=== PATIENT | female | born 2000 | race Caucasian/White ===

== ENCOUNTER 2021-03-01 21:13 | Emergency (ER) | payer OTHER, SELFPAY ==
--- NOTE | ~2021-03-01 | XR_ITS ---
EXAMINATION: XR THORACIC SPINE CLINICAL INFORMATION: Back pain COMPARISON: None TECHNIQUE: 3 views of the thoracic spine were obtained. FINDINGS: Alignment throughout the thoracic spine appears anatomic. Vertebral body heights and intervertebral disc spaces are maintained. No acute fracture is seen. XR/XR thoracic spine 3V IMPRESSION: No acute findings identified.
--- NOTE | ~2021-03-01 | XR_ITS ---
EXAMINATION: XR LUMBOSACRAL SPINE CLINICAL INFORMATION: Back pain COMPARISON: None TECHNIQUE: Three views of the lumbosacral spine. FINDINGS: There is anatomic alignment of the lumbar vertebral bodies and posterior elements. Vertebral body heights and intervertebral disc spaces are maintained. No acute fracture is seen. Sacroiliac joints appear intact. XR/XR lumbar spine 2-3V IMPRESSION: No acute findings identified.
[2021-03-01 22:33] VITALS: BP 127/79; PULSE 76; RESP 16; TEMP 36.6; O2SAT 100; BMI 33.2
[2021-03-02] MEDS: oxyCODONE HCl Immed Release 5 MG TABLET PO (01:47)
--- NOTE | 2021-03-02 02:20 | ED_ITS ---
HPI - Back Pain/Injury General Chief Complaint: Back Pain/Injury Stated Complaint: back pain Time Seen by Provider: 03/02/21 00:35 History of Present Illness HPI Narrative: 20-year-old otherwise healthy female who presents to the emergency department with chronic back pain. Patient states ever since she was a teenager she has had chronic back pain extending from her upper to lower back. Denies any new or recent injury or trauma however states today at work while standing she had such severe low back pain she called her mom and had to leave and was in tears. Patient states she intermittently tried Motrin and Tylenol with this does not help. Denies any numbness or tingling in the arms and legs. Denies any neck pain. Denies any chest pain, shortness of breath, abdominal pain. Denies any numbness or tingling the genital region or weakness in lower extremities. Denies any issues with bowel or bladder habits. 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 Related Data Allergies Allergy/AdvReac Type Severity Reaction Status Date / Time No Known Allergies Allergy Verified 03/01/21 22:33 Review of Systems Review of Systems: Constitutional : No Weight loss, No Fever, No Chills, No Night Sweats, No Fatigue, No Malaise ENT/Mouth : No Hearing loss, No Ear Pain, No Nasal Congestion, No Sinus Pain, No Hoarseness, No sore throat, No Rhinorrhea, No Swallowing Difficulty Eyes: No Eye Pain, No Swelling, No Redness, No Foreign Body, No Discharge, No Vision Changes Cardiovascular : No Chest Pain, No SOB, No Dyspnea on Exertion, No Orthopnea, No Edema, No Palpitations Respiratory : No Cough, No Sputum, No Wheezing, No Smoke Exposure, No Dyspnea Gastrointestinal : No Nausea, No Vomiting, No Diarrhea, No Constipation, No abdominal Pain, No Hematochezia, No Melena Genitourinary : no irregular bleeding, No Dysuria, No Urinary Frequency, No Hematuria, No Urinary Incontinence, No Urgency, No Flank Pain, No Urinary Flow Changes, No Hesitancy Musculoskeletal : + back pain No Joint Swelling Skin : No Skin Lesions, No rash Neuro : No Weakness, No Numbness, No Paresthesias, No Loss of Consciousness, No Dizziness, No Headache Psych : No Anxiety/Panic, No Depression, No SI/HI/AH/VH, No Social Issues, Heme/Lymph: No Bruising, No Bleeding,No Lymphadenopathy Endocrine : No Polyuria, No Polydipsia, No Temperature Intolerance [facility] Past Medical History Attestation statement: The following information was validated with the patient. Source: old records reviewed and nursing notes reviewed Medical History (Updated 03/02/21 @ 02:33 by LÁZARO Mitchell) Asthma Back pain Social History Social History Advance Directives: No Advance Directives Information Provided: No Physical Exam Vital Signs: Vital Signs: Last Vital Signs Temp 98 F 03/01/21 22:33 Pulse 76 03/01/21 22:33 Resp 16 03/01/21 22:33 BP 127/79 03/01/21 22:33 Pulse Ox 100 03/01/21 22:33 Body Mass Index 33.2 vital signs have been reviewed as normal and appeared to be correct. Blood pressure normal. Heart rate normal. Respiration rate normal. Temperature normal. Oxygen saturation normal. Appearance: Alert. Oriented X3. No acute distress. Head: Normal external exam. Normocephalic. Atraumatic. No Martinez signs noted. No raccoon eyes noted Eyes:Conjunctiva and sclera normal. Eyelids normal. ENT: Moist mucous membranes. No trismus noted. No drooling noted. No muffled voice noted. Neck: Normal inspection. Neck supple. FROM. . No meningeal signs. No neck mass noted. CVS: Pulses normal throughout. Respiratory: No respiratory distress. Painless inspiration. Chest nontender. Abdomen: Soft and nontender. No distention noted. No organomegaly noted. No visible injury noted. Back: No CVA tenderness. Full range of motion noted. Tenderness to palpation to the midline spine from the upper thoracic region to the lower lumbar region. No C-spine tenderness. No acute step-offs or gross deformities. No overlying erythema ecchymosis or edema. Skin: Skin warm and dry. Normal skin color. Normal skin turgor. No rashes/lesions/lacerations noted. Extremities: No lower extremity edema. Extremities exhibit normal range of motion. Extremities nontender. Neuro: Oriented X 3. No motor deficit. No sensory deficit. Reflexes normal. Course Reevaluation(s) Reevaluation #1: Patient's x-rays returning without evidence of fracture dislocation feel that discharge is stable, will discharge home at this time. MDM - Back Pain/Injury MDM Narrative Medical decision making narrative: Patient's vital signs are stable and she is afebrile. Patient presenting to the ED for chronic back pain on the upper back to lower back. Patient without any gross neurologic deficits no signs of injury or trauma. Patient herself denies any recent injury or trauma. Unclear cause of patient's symptoms lower suspicion for acute emergent injury however will obtain plain films of the thoracic and lumbar spine given recent day care provider to ensure the absence of compression fractures. Will medicate with single dose of oxycodone have expressed I will not write prescription for this at home. Have expressed the importance of outpatient physical therapy/specialist evaluation which I am happy to provide. Will continue to monitor and reassess pending the above. Discharge Plan Discharge Clinical Impression: Thoracic back pain, Acute lumbar back pain Patient Disposition: Home, Self-Care Instructions: Back Pain (ED) Additional Instructions: Your seen in the emergency department today for ongoing back pain. X-rays were taking without evidence of acute fracture or dislocation you will be referred to a specialist for additional management her pain. Use Motrin and Tylenol at home for pain control Referrals: Alejandro Mancini MD [Physician] - 1 week Stand Alone Forms: Work/School Release Print Language: [place]
== END 2021-03-02 02:51 | disposition home or self-care (01) ==
PROVIDERS: Emergency Provider Emergency Medicine; PCP Specialist
DX: M54.5 Low back pain (principal); M54.6 Pain in thoracic spine
CPT/HCPCS: 72072; 72100; 99283

== ENCOUNTER 2023-05-04 10:47 | Outpatient (REF) | payer BC, SELFPAY ==
[2023-05-04 11:07] LABS: MANUAL DIFF FLAG NO
[2023-05-04 11:53] LABS: Basophils Percent Auto 0.3 % (0-2); Eosinophils Absolute Auto 0.3 X10*3/uL (0.0-0.4); Eosinophils Percent Auto 3.6 % (0-4); Hemoglobin 12.9 g/dl (12.0-16.0); Imm Gran Abs Auto 0.02 X10*3/uL (0.00-0.03); Imm Gran Pct Auto 0.2 % (0.0-0.4); Lymphocytes Absolute Auto 2.6 X10*3/uL (1.2-4.9); Lymphocytes Percent Auto 29.7 % (20-40); Mean Corpuscular HGB Conc 30.7 g/dl (31.0-35.0); Mean Corpuscular Hemoglobin 25.3 pg (27.0-33.0); Mean Corpuscular Volume 82.4 fL (80.0-98.0); Mean Platelet Volume 9.1 fL (9.4-12.3); Monocytes Absolute Auto 0.3 X10*3/uL (0.1-1.2); Monocytes Percent Auto 3.6 % (2-11); Neutrophils Absolute Auto 5.5 x10*3/uL (2.0-8.3); Neutrophils Percent Auto 62.6 % (45-73); Platelet Count 457 X10*3/uL (160-400); White Blood Count 8.9 X10*3/uL (4.8-10.8)
[2023-05-04 12:38] LABS: Alanine Aminotransferase 11 U/L (0-31); Albumin Level 3.8 g/dL (3.5-5.0); Alkaline Phosphatase 83 U/L (39-117); Anion Gap 10 (12-20); Aspartate Amino Transferase 13 U/L (5-31); Bilirubin Direct < 0.2 mg/dL (0.0-0.5); Bilirubin Total 0.2 mg/dL (0.0-1.0); Blood Urea Nitrogen 11 mg/dL (9-16); Calcium 9.6 mg/dL (8.4-10.2); Carbon Dioxide 26 mmol/L (22-29); Chloride 108 mmol/L (96-108); Cholesterol 197 mg/dL; Estimated Glomerular Filt Rate > 60; Glucose Random 101 mg/dL (60-115); HDL Cholesterol 41 mg/dL; LDL Cholesterol Calculated 131 mg/dl; Potassium 4.2 mmol/L (3.3-5.1); Sodium 140 mmol/L (135-145); Total Protein 7.8 g/dL (6.5-8.0); Triglycerides 129 mg/dL
[2023-05-05 06:02] LABS: HBS Num1 66.83 mIU/mL (0-7.99); HBc Num1 0.11 S/CO (0.00-0.79); HBsAGNum1 0.37 S/CO (0.00-0.99); Hepatitis B Core Antibody Nonreactive (Nonreactive); Hepatitis B Surface Antigen Negative (Negative); ~HepC Num1 0.68 S/CO (0.00-0.79); ~Hepatitis B Surface Antibody REACTIVE (Nonreactive); ~Hepatitis C Antibody Nonreactive (Nonreactive)
[2023-05-06 22:53] LABS: TS Negative Control Passed; TS Panel A 0; TS Panel B 0; TS Positive Control Passed; TSpotTB Negative (Negative)
== END 2023-05-04 10:48 | disposition home or self-care (01) ==
LOC: HO.LAB 10:47
PROVIDERS: PCP Internal Medicine; Visit Provider Physician Assistant Medical
DX: L20.89 Other atopic dermatitis (principal)
CPT/HCPCS: 36415; 80048; 80061; 80076; 85025; 86481; 86704; 86706; 86803; 87340

== ENCOUNTER 2023-10-21 14:59 | Outpatient (AMB) | payer BC, SELFPAY ==
--- NOTE | 2023-10-21 15:03 | MHC.OFFWIV ---
Intake Vital Signs 10/21/23 15:05 Height 5 ft Weight 185 lb 4 oz BMI 36.2 BP 124/76 Blood Pressure Location Rt brachial Position Sitting Pulse 71 Pulse Source Pulse Oximeter Temp 97.4 F Temp Source Temporal Artery Scan Pulse Oximetry (%) 99 Oxygen Delivery Method Room Air Intake Visit Reasons: EST/ear pain bilateral(lobby) Intake Note: Pt is here c/o bilateral ear discomfort for three weeks. Patient Tobacco Use Status: Never used Tobacco Allergies No Known Allergies Allergy (Verified 10/21/23 15:05) Do you need a note to return to daycare/school/sports/work: No HPI HPI Comments History of Present Illness Details Patient is a 22yo F who presents to office with R ear pain She said ongoing x 3 weeks Started intermittent and has become constant Rates it a 03/21 No discharge, drainage, loss of hearing No fever or chills Minimal ST resolved No congestion or cough Using OTC medicine without comolete relief Denies trauma [facility] Medical History (Updated 10/21/23 @ 15:23 by Anny Matt PA-C) Back pain Asthma Surgical History No pertinent past surgical history Family History Mother Thyroid disease Father No problems noted. Social History Housing: House Alcohol intake: current Alcohol intake frequency: holidays/special occasions only Alcohol type: other Patient Tobacco Use Status: Never used Tobacco e-Cigarette/Vaping Use: Never Used Second Hand Smoke Exposure: No service: No Current occupational status: employed Current occupational exposures/hazards: No Cognitive needs: No Hearing needs: No Vision needs: Yes Review of Systems Const Denies body aches, Denies chills, Denies fatigue, Denies fever(s) and Denies headache(s) Eyes Denies blurry vision ENT Reports otalgia, Denies headache(s), Denies nasal discharge and Denies sore throat (none currently) Card Denies chest pain Resp Denies cough Musc Denies myalgias Skin/Breast Denies erythema and Denies rash Neuro Denies headache(s) Endo Denies fatigue Physical Exam Vital Signs: Last Vital Signs Temp 97.4 F 10/21/23 15:05 Pulse 71 10/21/23 15:05 BP 124/76 10/21/23 15:05 Pulse Ox 99 10/21/23 15:05 Oxygen Delivery Method Room Air 10/21/23 15:05 BMI result Body Mass Index 36.2 General: Non-toxic, NAD. Speaking full sentences. Skin: Warm dry throughout Eye: EOMI HENT: Airway patent. Uvula midline. No pharyngeal erythema or edema. 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 Bilateral canals clear. R TM has slight clear fluid behind membrane. Both TM non-erythematous, non-bulging. No TM perforation or hemotympanum noted. Respiratory: No respiratory distress Neurology: A/O. No aphasia or facial droop. Gait without abnormality Psych: Good mood and affect Assessment & Plan Assessment & Plan (1) Otalgia of right ear: Code(s): H92.01 - Otalgia, right ear Plan: Patient seen and evaluated. No OM or OE noted on exam Small amount of fluid behind R TM without infection Will trial nasal steroid andtylenol prn F/U with PCP Patient gave verbal understanding and had no additional questions or concerns at time of discharge All questions answered Medications: New ipratropium bromide administer into each nostril 2 sprays intranasal BID-TID PRN 30 mL 0RF allergy symptoms Coding Level of Care Code Est Pt Level 3 (73514) Diagnoses Otalgia of right ear H92.01
[2023-10-21 15:05] VITALS: BP 124/76; PULSE 71; TEMP 36.3; O2SAT 99; BMI 36.2
== END 2023-10-21 15:35 | disposition home or self-care (01) ==
PROVIDERS: PCP Internal Medicine; Visit Provider Physician Assistant
DX: H92.01 Otalgia, right ear (principal)
CPT/HCPCS: 99213

== ENCOUNTER 2023-12-05 09:04 | Outpatient (REF) | payer BC, SELFPAY ==
[2023-12-05 09:16] LABS: MANUAL DIFF FLAG NO
[2023-12-05 09:40] LABS: Basophils Percent Auto 0.2 % (0-2); Eosinophils Absolute Auto 0.1 X10*3/uL (0.0-0.4); Eosinophils Percent Auto 1.5 % (0-4); Hematocrit 38.2 % (37.0-47.0); Hemoglobin 12.3 g/dl (12.0-16.0); Imm Gran Abs Auto 0.03 X10*3/uL (0.00-0.03); Imm Gran Pct Auto 0.3 % (0.0-0.4); Lymphocytes Absolute Auto 3.3 X10*3/uL (1.2-4.9); Lymphocytes Percent Auto 38.6 % (20-40); Mean Corpuscular HGB Conc 32.2 g/dl (31.0-35.0); Mean Corpuscular Hemoglobin 27.5 pg (27.0-33.0); Mean Corpuscular Volume 85.5 fL (80.0-98.0); Mean Platelet Volume 9.1 fL (9.4-12.3); Monocytes Absolute Auto 0.5 X10*3/uL (0.1-1.2); Monocytes Percent Auto 5.6 % (2-11); Neutrophils Absolute Auto 4.6 x10*3/uL (2.0-8.3); Neutrophils Percent Auto 53.8 % (45-73); Platelet Count 517 X10*3/uL (160-400); Red Blood Count 4.47 X10*6/uL (4.20-5.50); Red Cell Distribution Width 13.1 % (11.0-16.0); White Blood Count 8.6 X10*3/uL (4.8-10.8)
[2023-12-05 10:14] LABS: Alanine Aminotransferase 8 U/L (0-31); Albumin Level 3.6 g/dL (3.5-5.0); Alkaline Phosphatase 70 U/L (39-117); Anion Gap 10 (12-20); Aspartate Amino Transferase 14 U/L (5-31); Bilirubin Total 0.3 mg/dL (0.0-1.0); Blood Urea Nitrogen 15 mg/dL (9-16); Calcium 9.1 mg/dL (8.4-10.2); Carbon Dioxide 21 mmol/L (22-29); Chloride 111 mmol/L (96-108); Cholesterol 220 mg/dL (<200); Estimated Glomerular Filt Rate > 60; Glucose Random 71 mg/dL (60-115); HDL Cholesterol 54 mg/dL (>40); LDL Cholesterol Calculated 150 mg/dL (<100); Potassium 3.9 mmol/L (3.3-5.1); Sodium 138 mmol/L (135-145); Total Protein 7.2 g/dL (6.5-8.0); Triglycerides 83 mg/dL (<150)
== END 2023-12-05 09:05 | disposition home or self-care (01) ==
LOC: HO.LAB 09:04
PROVIDERS: PCP Internal Medicine; Visit Provider Physician Assistant Medical
DX: Z13.6 Encounter for screening for cardiovascular disorders (principal); L20.89 Other atopic dermatitis
CPT/HCPCS: 36415; 80053; 80061; 85025

== ENCOUNTER 2023-12-26 09:22 | Outpatient (REF) | payer BC, SELFPAY ==
[2023-12-26 09:37] LABS: MANUAL DIFF FLAG NO
[2023-12-26 10:21] LABS: Basophils Percent Auto 0.2 % (0-2); Eosinophils Absolute Auto 0.3 X10*3/uL (0.0-0.4); Eosinophils Percent Auto 2.9 % (0-4); Hematocrit 38.6 % (37.0-47.0); Hemoglobin 12.2 g/dl (12.0-16.0); Imm Gran Abs Auto 0.04 X10*3/uL (0.00-0.03); Imm Gran Pct Auto 0.5 % (0.0-0.4); Lymphocytes Absolute Auto 2.8 X10*3/uL (1.2-4.9); Lymphocytes Percent Auto 32.4 % (20-40); Mean Corpuscular HGB Conc 31.6 g/dl (31.0-35.0); Mean Corpuscular Hemoglobin 26.8 pg (27.0-33.0); Mean Corpuscular Volume 84.6 fL (80.0-98.0); Mean Platelet Volume 8.9 fL (9.4-12.3); Monocytes Absolute Auto 0.6 X10*3/uL (0.1-1.2); Monocytes Percent Auto 6.5 % (2-11); Neutrophils Percent Auto 57.5 % (45-73); Platelet Count 396 X10*3/uL (160-400); Red Blood Count 4.56 X10*6/uL (4.20-5.50); Red Cell Distribution Width 12.6 % (11.0-16.0); White Blood Count 8.7 X10*3/uL (4.8-10.8)
[2023-12-26 11:03] LABS: Alanine Aminotransferase 9 U/L (0-31); Albumin Level 3.6 g/dL (3.5-5.0); Alkaline Phosphatase 72 U/L (39-117); Anion Gap 10 (12-20); Aspartate Amino Transferase 15 U/L (5-31); Bilirubin Total 0.2 mg/dL (0.0-1.0); Blood Urea Nitrogen 11 mg/dL (9-16); Calcium 9.4 mg/dL (8.4-10.2); Carbon Dioxide 23 mmol/L (22-29); Chloride 112 mmol/L (96-108); Cholesterol 201 mg/dL (<200); Estimated Glomerular Filt Rate > 60; Glucose Fasting 71 mg/dL (60-99); HDL Cholesterol 49 mg/dL (>40); LDL Cholesterol Calculated 135 mg/dL (<100); Potassium 4.1 mmol/L (3.3-5.1); Sodium 141 mmol/L (135-145); Total Protein 7.4 g/dL (6.5-8.0); Triglycerides 85 mg/dL (<150)
[2023-12-26 11:19] LABS: Thyroid Stimulating Hormone 1.26 uIU/mL (0.32-4.0)
== END 2023-12-26 09:23 | disposition home or self-care (01) ==
LOC: HO.LAB 09:22
PROVIDERS: PCP Internal Medicine; Visit Provider Internal Medicine
DX: E66.9 Obesity, unspecified (principal)
CPT/HCPCS: 36415; 80053; 80061; 84443; 85025

== ENCOUNTER 2024-06-06 17:24 | Outpatient (AMB) | payer BC, SELFPAY ==
--- NOTE | 2024-06-06 17:26 | MHC.PC.OV ---
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 Accompanied by: Self / Same As Patient Allergies No Known Allergies Allergy (Verified 06/06/24 17:41) Medication List - Last Reconciled 06/06/24 by Marsha Yeung MD desogestrel-ethinyl estradiol 0.15-0.03 mg (Apri) 1 tab PO DAILY Tobacco use date assessed: 06/06/24 Dental Screening Dental Screen Date: 06/06/24 Did you have a dental visit in the last 12 months?: Yes Did you have a dental problem in the last 6 months where you did not have access to dental care?: No Was dental information given to patient?: Patient has dentist HPI HPI Comments History of Present Illness Details This is a 23-year-old female that comes for her physical exam. Pap smear done 2023 was normal as per patient. Complains of some hair loss and will see Dermatology next year. She is obese with a BMI of 35.9 and has tried diet and exercise with no significant improvement. I will start her on Wegovy if insurance approves. [facility] Medical History Back pain Asthma Surgical History No pertinent past surgical history Family History Mother Thyroid disease Father No problems noted. Social History Housing: House Alcohol intake: current Alcohol intake frequency: holidays/special occasions only Alcohol type: other Patient Tobacco Use Status: Never used Tobacco e-Cigarette/Vaping Use: Never Used Second Hand Smoke Exposure: No service: No Current occupational status: employed Current occupational exposures/hazards: No Cognitive needs: No Hearing needs: No Vision needs: Yes Questionnaire PHQ-9 Over the last 2 weeks, how often have you been bothered by any of the following problems? 1. Little interest or pleasure in doing things: not at all 2. Feeling down, depressed, or hopeless: not at all 3. Trouble falling or staying asleep, or sleeping too much: not at all 4. Feeling tired or having little energy: not at all 5. Poor appetite or overeating: not at all 6. Feeling bad about yourself - or that you are a failure or have let yourself or your family down: not at all 7. Trouble concentrating on things, such as reading the newspaper or watching television: not at all 8. Moving or speaking so slowly that other people could have noticed. Or the opposite - being so fidgety or restless that you have been moving around a lot more than usual: not at all 9. Thoughts that you would be better off or of hurting yourself in some way: not at all Total score: 0 Depression Screening Interpretation: Negative Depression Screening Done: Yes 30113 - PHQ-9 Billing: Yes Source: Developed by Drs. Enoch Blanco, Lidia Lorenzo, Kash Jimenez and colleagues, with an educational aashish from [employer]. Thrive Questionnaire Date Thrive assessed: 06/06/24 I am a: Patient What is your living situation today?: I have a steady place to live Within the past 12 months, did the food you bought not last and you didn't have the money to get more?: Never true Within the past 12 months, did you worry whether your food would run out before you got money to buy more?: Never true Do you have trouble paying for medicines?: No Do you have trouble getting transportation to medical appointments?: No Do you have trouble paying your heating and electricity bill?: No Do you have trouble taking care of your child, family member or friend?: No Do you have trouble with day-to-day activities such as bathing, preparing meals, shopping, managing finances, etc.?: No Are you currently unemployed and looking for a job?: No Are you interested in more education?: No Please select the resources that you would like help with: None Currently or been in a relationship where the following occur: No concerns reported THRIVE Score: 0 AUDIT C Alcohol Use Questionnaire (AUDIT-C) 1. How often do you have a drink containing alcohol?: Never Total Score: 0 Score Reviewed/Action Taken: No WANG-7 AMB Questionnaire WANG-7 Date WANG - 7 assessed: 06/06/24 Feeling nervous, anxious, or on edge: 3 = Nearly every day Not being able to stop or control worryin = Not at all Worrying too much about different things: 1 = Several days Trouble relaxin = Not at all Being so restless that it is hard to sit still: 1 = Several days Becoming easily annoyed or irritable: 0 = Not at all Feeling afraid as if something awful might happen: 1 = Several days Total WANG-7 score (0-4 normal; 5-9 mild; 10-14 moderate; 15-21 severe): 6 Source: Developed by Drs. Enoch Blanco, Lidia Lorenzo, Kash Jimenez and colleagues, with an educational aashish from [employer]. WANG-7 Assessment Billing WANG-7 Assessment Tool: WANG-7 Assessment 59361 Review of Systems Const All systems reviewed & are unremarkable except as noted in HPI and below Card Denies chest pain at rest, Denies chest pain with activity, Denies edema, Denies irregular heart rhythm, Denies claudication, Denies dyspnea, Denies dyspnea on exertion, Denies orthopnea, Denies paroxysmal nocturnal dyspnea and Denies slow heart rate Resp Denies cough, Denies dyspnea and Denies dyspnea on exertion GI Denies abdominal pain, Denies change in bowel habits, Denies excessive flatus, Denies nausea and Denies vomiting Musc Denies atrophy, Denies deformity and Denies limited range of motion Physical exam (Primary Care) Vital Signs: Last Vital Signs BP 122/70 06/06/24 17:27 BMI result Body Mass Index 35.9 BMI Assessment/Plan discussion: High BMI High, discussed plan: lifestyle, weight reduction, dietary and physical activity Tobacco/Smoking Status: Tobacco use Status Tobacco use date assessed 06/06/24 06/06/24 17:34 Patient Tobacco Use Status Never used Tobacco 06/06/24 17:34 e-Cigarette/Vaping Use Never Used 06/06/24 17:34 PHQ-9: PHQ-9 Score PHQ-9: Total score 0 06/06/24 17:44 Depression Screening Interpretation: Negative Thrive Assessment: Date of Thrive Assessment Date Thrive assessed 06/06/24 06/06/24 17:34 Currently or been in a relationship where the following occur: No concerns reported HENWV Head: Yes normal to inspection, Yes normocephalic and Yes atraumatic Ears: external ears normal Eyes General: appearance normal, both eyes and all related structures Eyelids: Yes eyelids normal Conjunctivae: conjunctivae normal Neck Neck: Yes normal visual inspection and Yes supple Resp Effort & Inspection: normal respiratory effort Auscultation: clear to auscultation bilaterally Cardio Jugular venous distension: no JVD Rate: regular rate Rhythm: regular rhythm Heart sounds: S1 normal heart sound present and S2 normal heart sound present GI Inspection: Yes normal to inspection Palpation (GI): Soft to palpation and nontender Auscultation: normal bowel sounds Skin General skin exam: no rashes or lesions noted Neuro General: no focal motor deficits Extrem General: Yes full ROM Psych Appearance: grossly normal Assessment and Plan Assessment & Plan (1) Physical exam: Code(s): Z00.00 - Encounter for general adult medical examination without abnormal findings Plan: Repeat in a year. Medications: New semaglutide (weight loss) (Wegovy) administer weeks 1 through 4 of therapy 0.25 mg (0.5 mL) subcut QWEEK 2 mL 0RF 4 weeks E66.9 - Obesity, unspecified Coding Level of Care Code Est Pt Prev Care 18-39y(34973) Diagnoses Physical exam Z00.00 Additional Codes WANG-7 Assessment Billing - WANG-7 Assessment Tool: WANG-7 Assessment 20179 ([id number]) Time Spent (min) 30
[2024-06-06 17:27] VITALS: BP 122/70; BMI 35.9
== END 2024-06-06 17:55 | disposition home or self-care (01) ==
PROVIDERS: PCP Internal Medicine; Visit Provider Internal Medicine
DX: Z00.00 Encounter for general adult medical examination without abnormal findings (principal)
CPT/HCPCS: 99395

== ENCOUNTER 2024-07-07 10:24 | Outpatient (REF) | payer BC, SELFPAY ==
--- NOTE | ~2024-07-07 | US_ITS ---
EXAMINATION: US THYROID CLINICAL INFORMATION: Nontoxic goiter, unspecified. COMPARISON: None available. TECHNIQUE: Linear transducer grayscale and color Doppler examination with attention to the region of the thyroid. FINDINGS: SIZE: Measurements of the thyroid lobes and nodules are given in sagittal, anteroposterior and transverse dimensions respectively. Right Thyroid Lobe: 4.0 x 1.4 x 1.4 cm, volume 3.9 mL. Parenchyma: The gland echotexture is homogeneous. Thyroid vascularity is normal. Left Thyroid Lobe: 3.9 x 1.2 x 1.3 cm, volume 3.1 mL. Parenchyma: The gland echotexture is homogeneous. Thyroid vascularity is normal. Isthmus: 0.2 cm in maximum AP dimension. No focal thyroid nodule is seen. NODES: No lymphadenopathy is seen in the tissue surrounding the thyroid gland. US/US thyroid IMPRESSION: Normal thyroid ultrasound ACR TI-RADS RECOMMENDATION REFERENCE: Ultrasound-guided fine-needle aspiration, followup ultrasound, no further follow up. * TR1 (0 point) and TR2 (2 points): No FNA or follow up. * TR3 (3 points): FNA if more than or equal to 2.5 cm in maximum dimension, followup ultrasound in 1, 3 and 5 years if 1.5 to 2.4 cm in maximum dimension. * TR4 (4-6 points): FNA if more than or equal to 1.5 cm in maximum dimension, followup ultrasound in 1, 2, 3 and 5 years if 1 to 1.4 cm in maximum dimension. * TR5 (more than or equal to 7 points): FNA if more than or equal to 1 cm in maximum dimension, followup ultrasound every year for 5 years if 0.5 to 0.9 cm in maximum dimension. * TR3, TR4 or TR5 nodules that are below the size threshold for followup receive no follow up. Electronically signed by: Gerardo Tyler MD 09/14/2024 10:05 PM [facility]
[2024-07-07 13:13] LABS: Thyroid Stimulating Hormone 1.28 uIU/mL (0.32-4.0)
[2024-07-08 11:04] LABS: Thyroglobulin Antibodies <1 IU/mL (< or = 1)
[2024-07-08 13:08] LABS: Thyroid Peroxidase Antibodies <1 IU/mL (<9)
[2024-07-19 14:32] LABS: Triiodothyronine T3 Reverse 17 ng/dL (8-25)
== END 2024-07-07 10:25 | disposition home or self-care (01) ==
LOC: HO.US 10:24
PROVIDERS: PCP Internal Medicine; Visit Provider Internal Medicine
DX: E04.9 Nontoxic goiter, unspecified (principal)
CPT/HCPCS: 36415; 76536; 84439; 84443; 84482; 86376; 86800

== ENCOUNTER 2024-09-21 11:42 | Emergency (ER) | payer BC, SELFPAY ==
--- NOTE | ~2024-09-21 | XR_ITS ---
EXAMINATION: XR CHEST 1:05 PM CLINICAL INFORMATION: sob COMPARISON: None available. TECHNIQUE: Frontal view of the chest was obtained. FINDINGS: No significant abnormality is noted involving the heart, lungs, mediastinum, bony thorax or soft tissues. XR/XR chest 1V IMPRESSION: Unremarkable examination. Electronically signed by: Jered Samayoa MD 09/21/2024 02:10 PM [facility] [place]
[2024-09-21 12:23] VITALS: BP 136/58; PULSE 67; RESP 18; TEMP 37.1; O2SAT 100; BMI 35.6
--- NOTE | 2024-09-21 12:27 | ED.GENADULT ---
HPI - General Adult General Chief complaint: Upper Respiratory Symptoms Stated complaint: diff breathing last couple days Related Data Home Medications ?Medication ?Instructions ?Recorded ?Confirmed desogestrel 0.15 mg-ethinyl 1 tab PO DAILY 10/14/22 06/06/24 estradiol 0.03 mg tablet (Apri) Previous Rx's ?Medication ?Instructions ?Recorded semaglutide (weight loss) 0.25 0.25 mg (0.5 mL) subcut QWEEK 4 06/06/24 mg/0.5 mL subcutaneous pen weeks #2 mL injector (Wegovy) guaifenesin 600 mg tablet, 600 mg PO BID 5 days #10 tabs 09/16/24 extended release 12 hr (Mucinex) albuterol sulfate 90 mcg/actuation 2 puff inhalation Q6H PRN 09/19/24 aerosol inhaler (Ventolin HFA) shortness of breath or wheezing 30 days #8.5 grams Allergies Allergy/AdvReac Type Severity Reaction Status Date / Time No Known Allergies Allergy Verified 09/21/24 12:26 [facility] Past Medical History Medical History Back pain Asthma Surgical History No pertinent past surgical history Family History Family History Mother Thyroid disease Father No problems noted. Social History Social History Housing: House Alcohol intake: current Alcohol intake frequency: holidays/special occasions only Alcohol type: other Patient Tobacco Use Status: Never used Tobacco e-Cigarette/Vaping Use: Never Used Second Hand Smoke Exposure: No Advance Directives: No Advance Directives Information Provided: No service: No Current occupational status: employed Current occupational exposures/hazards: No Cognitive needs: No Hearing needs: No Vision needs: Yes Physical Exam ED Vital Signs: Vital Signs - 24 hr 09/21/24 12:23 Temperature 98.7 F Pulse Rate 67 Respiratory Rate 18 Blood Pressure 136/58 L Pulse Oximetry 100 Oxygen Delivery Method Room Air BMI result Body Mass Index 35.6 Course Course Course Narrative: This is a rapid medical exam performed by Sina Moore NP: Additional HPI, ROS, PE not included below will be deferred to primary provider. Patient is a 23-year-old female with history of asthma presenting to the emergency department with complaint of cough and shortness of breath for the past 3 weeks. Reports increased shortness of breath after episodes of coughing. Complains of chest pain during coughing episodes. Plan: viral serology, CXR Medical Decision Making Lab Data Labs: Lab Results 09/21/24 Range/Units 15:12 Influenza Type A (PCR) NEGATIVE (Negative) Influenza Type B (PCR) NEGATIVE (Negative) RSV RNA Qual (PCR) NEGATIVE (Negative) SARS-CoV-2 RNA (RT-PCR) NEGATIVE (Negative) Discharge Plan Discharge Clinical Impression: Diagnosis unknown Patient Disposition: Left W/O Completing Treatment Prescriptions: No Action guaifenesin [Mucinex] 600 mg tablet extended release 12hr 600 mg PO BID 5 Days Qty: 10 0RF albuterol sulfate [Ventolin HFA] 90 mcg/actuation HFA aerosol inhaler 2 puff inhalation Q6H PRN (Reason: shortness of breath or wheezing) 30 Days Qty: 8.5 1RF desogestrel-ethinyl estradiol [Apri] 0.15-0.03 mg tablet 1 tab PO DAILY Wegovy 0.25 mg/0.5 mL pen injector 0.25 mg subcut QWEEK 28 Days Qty: 2 0RF Rx Instructions: administer weeks 1 through 4 of therapy Discharge Date/Time: 09/21/24 18:15
[2024-09-21 16:26] LABS: Influenza A PCR NEGATIVE (Negative); Influenza B PCR NEGATIVE (Negative); Resp Syncy Virus RNA Qual PCR NEGATIVE (Negative); SARS COV2 PCR INHOUSE NEGATIVE (Negative)
--- OUTSIDE RECORDS SUMMARY | 2024-09-22 01:50 | XMS_ITS | Data Portability ---
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 Plan of Treatment Reminders Order Date Submit Date Provider Last Modified By Organization Details Last Modified Time Details Appointments None recorded. Lab pap test, thinprep, cervical 2021 022 [facility], Cytopathology Service, [address] [place] [address], [id number], 2 07:27:27 chlamydia sp, culture, unspecifie d specimen 2021 022 [facility], Cytopathology Service, [address] [place] [address], [id number], 2 07:30:24 NG DNA, PCR, genital 2021 022 [facility], Cytopathology Service, [address] [place] [address], [id number], 2 07:30:25 pap test, thinprep, cervical 2022 023 [facility], [address] [place], [address], 3 07:32:33 chlamydia sp, culture, unspecifie d specimen 2022 023 [facility], [address] [place], [address], 3 07:32:34 NG DNA, PCR, genital 2022 023 [facility], [address] [place], [address], 3 07:32:34 cytology report, thin prep, smear or scraping, cervical or vaginal 2023 024 [facility], [address] [place], [address], 4 10:07:14 Referral None recorded. Procedures None recorded. Surgeries None recorded. Imaging None recorded. Medication Orders Apri 0.15 mg-0.03 mg tablet 2021 022 [facility]/Pharmacy #[id number], [address] [place], [address], 2 15:43:34 Apri 0.15 mg-0.03 mg tablet 2022 023 [facility]armacy #[id number], [address] [place], [address], 3 14:15:43 Alyacen 1/35 (28) 1 mg-35 mcg tablet 2023 024 [id number] [address] [place] [address], [address], 4 15:43:16 Patient TargetsNo targets recorded. Patient Instructions Encounter Date Encounter Id Patient Instructions Last Modified By Organization Details Last Modified Time 01/13/2022 [id number] learning about healthy weight Not available 01/13/2022 15:43:32 She is here as a new patient for annual exam, it is her first pap. She takes the OCP with good results, remembers daily, and elects to continue. Same partner for 3 years. She works at [employer] in [place]. We reviewed the interaction of the OCP with antibiotics. We discussed the need to use a condom during antibiotic use and also for a minimum of three weeks following the use of antibiotics. We discused interactions with some herbal and OTC meds, such as [facility] Possible side effects, and the stated risk of one in 10,000 to develop a blood clot/ DVT/PE were also discussed. Safe sex was stressed. All questions answered, rx to be called in to pharmacy. She appears to be doing well. She is advised to get 1500 mg of calcium daily into her diet and supplements combined. There is a health benefit with adequate vitamin D supplementation to at least 400 units daily, daily aerobic exercise of 30 minutes, and stress reduction. Monthly self breast exam was taught, and stressed, and is advised to call if she discovers any new mass in the breast. Not available 01/13/2022 15:44:12 01/27/2023 [id number] learning about healthy weight Not available 01/27/2023 14:15:24 She is here for annual exam, doing well on ning OCP. She and her boyfriend just returned from vacation in [place]. Note from 2021: She is here as a new patient for annual exam, it is her first pap. She takes the OCP with good results, remembers daily, and elects to continue. Same partner for 3 years. She works at [employer] in [place] [employer] [facility]. We reviewed the interaction of the OCP with antibiotics. We discussed the need to use a condom during antibiotic use and also for a minimum of three weeks following the use of antibiotics. We discused interactions with some herbal and OTC meds, such as [facility] Am[facility]'s Possible side effects, and the stated risk of one in 10,000 to develop a blood clot/ DVT/PE were also discussed. Safe sex was stressed. All questions answered, rx to be called in to pharmacy. She appears to be doing well. Monthly self breast exam was taught, and stressed, and is advised to call if she discovers any new mass in the breast. Not available 01/27/2023 14:15:22 02/26/2024 [id number] learning about healthy weight Not available 02/26/2024 15:43:14 She is here for annual, has noted worsening dysmenorrhea with cramping wiht ht elast several menses getting worse on her OCP. 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 Note from 2022: She is here for annual exam, doing well on ning OCP. She and her boyfriend just returned from vacation in [place]. She appears to be doing well. . Monthly self breast exam was taught, and stressed, and is advised to call if she discovers any new mass in the breast. We discussed the options of going up on the OCP dose from 30 to 35 mcg, or changing to depo provera or the progestin IUD. All questions answered. After discussion she elects to go up on dose. We reviewed the interaction of the OCP with antibiotics. We discussed the need to use a condom during antibiotic use and also for a minimum of three weeks following the use of antibiotics. We discused interactions with some herbal and OTC meds, such as [facility] Amador's Possible side effects, and the stated risk of one in 10,000 to develop a blood clot/ DVT/PE were also discussed. Safe sex was stressed. All questions answered, rx to be called in to pharmacy. Not available 02/26/2024 15:46:46 Reason for Referral None Reported. Results Created Date Observation Date Name Description Value Unit Range Abnormal Flag Note LastModifiedBy Organization Detail LastModifiedTime 01/14/20 22 01/13/2022 GENER AL5CA SE [id number] Chlam ydia: NEGAT DEB N. gonor rhoea e: NEGAT DEB Compl eted on 01-15 CLINI OWEN INFOR MATIO N: LPS no resul ts, [Z01. 419, Z11.3 ] SOURC E: ThinP rep Pap for CT/GC Gross Descr iptio n: ThinP rep Vial Recei anisa. Physi bin HOU M.D./ [phone] Not Available [facility], Cytopathology Service [address] [place], [address], 01/15/2022 09:51:18 01/14/20 22 01/13/2022 PAP1C ASE [id number] ThinP rep Pap, Image d: NEGAT DEB FOR SQUAM OUS INTRA EPITH ELIAL TEJA N AND CINTHYA NESS . Note: The Pap test is a scree meghan test with an inher ent false negat deb rate. Autom ated presc reeni ng of all liqui d based speci mens is perfo rmed by the ThinP rep Imagi ng Syste m unles s other rolle state d. Annita Presley hers , CT( CP) (Case elect jalil simon carter d 01 22 2022) ADEQU ACY: Satis facto ry Endoc ervic al/tr ansfo rmati on zone compo nent absen t. SOURC E: ThinP rep Pap HPV IF ASCUS , Cervi owen, Image d CLINI OWEN INFOR MATIO N: HPV If Diagn osis of ASCUS . [Z12. 4, Z01.4 19, Z11.3 ] Not Available [facility], Cytopathology Service [address] [place], [address], 01/22/2022 14:40:47 01/28/20 23 01/28/[address]/GC AMPLI FIED PROBE C.trach.amp probe thin prep (neg) NEGAT DEB No Chlam ydia Trach omati s RNA detec ina in this patie nt's sampl e (REFE RENCE RANGE /NORM AL VALUE : NOT DETEC INA) Note: This test uses trans cript ion- media ina ampli ficat ion metho d to detec t rRNA from C. Trach omati s Not Available [facility] [address], [place], [address], 01/28/2023 16:02:42 01/28/20 23 01/28/[address]/GC AMPLI FIED PROBE GC amplified probe thin prep (neg) NEGAT DEB No Neiss eria Gonor rhoea e RNA detec ina in this patie nt's sampl e (REFE RENCE RANGE /NORM AL VALUE : NOT DETEC INA) NOTE: This test uses trans cript ion-m ediat ed ampli ficat ion metho d to detec t rRNA from N.Jose R orrho eae. A negat deb resul t does not precl ude infec tion. In the case of a negat deb urine resul t, testi ng of an endoc ervic al(fe male) or ureth ral (male ) speci men is recom jimenez d if there is high clini owen suspi cion of infec tion. Due to very high sensi tivit y of Nucle ic Acid Ampli ficat ion Test, false posit deb resul ts may occur . There fore, speci men handl ing is extre ezra impor tant. In patie nts in whom the disea se is unlik allison, addit ional sampl e for testi ng shoul d be consi dered after an initi al posit deb resul t. The perfo rmanc e namrata cteri stics of this test have not been evalu ated in [place]. The Aptim a Combo 2 assay is not inten ded for the evalu ation of suspe cted sexua l abuse or for other medic o-leg al indic ation s. The order ing provi keila shoul d asses s if the patie nt had conse nsual sex witho ut risk of sexua l abuse . [facility] lt [facility] if neede d. Conta ct phone numbe r [phone]. Thera peuti c failu re or succe ss canno t be deter mined with the Aptim a Combo 2 assay since nucle ic acid may persi st follo wing appro priat e antim icrob ial thera py. The Cente rs for Disea se Contr ol and Preve ntion ([facility]) recom mends confi rmato ry retes ting using cultu re or a diffe rent nucle ic acid ampli ficat ion test when posit deb resul ts occur , if indic ated. Not Available [facility] [address], [place], [place], [address], 01/28/2023 16:02:42 01/28/20 23 01/27/2023 [facility] results Patie nt Name: BERE LEVI nt : 2000 (Age: 22) Lab Acces amos #: [id number] Colle ction Date: 2022 Acces amos Date: 2022 Sign Out Date: 2022 Tissu e Sourc e: 1: THINP REP BATTERY TEST ENGINEER PAP TEST, CERVI OWEN: Final Diagn osis: NEGAT DEB FOR INTRA EPITH ELIAL LESIO N OR MALIG GROVER . Satis facto ry for evalu ation . Endoc ervic al/tr ansfo rmati on zone prese nt. Clini owen Histo ry: Date of Last Menst rual Perio d: 01-14 Menst rual Histo ry: not avail able Contr acept deb Histo ry: not avail able Ancil michael Testi ng: HPV (ASCU S) Chlam ydia/ GC Case image d by the ThinP rep Imagi ng Syste m with chapo sahu rescr yvrose roche or loren guzman. Perfo rmed at [facility], [address], [place] Clini owen Histo ry (othe r): Z01.4 19 Z11.3 LPS 01-13 NEGAT DEB ROUTI NE SCREE N Phone #: [phone], [place] Patho logis t: [id number] Not Available [facility] [address] [place], [address], 02/02/2023 15:53:50 01/28/20 23 01/27/[address]/GC AMPLI FIED PROBE results Cance lled, no spec recd after 7 days Not Available [facility] [address] [place], [address], 02/03/2023 04:34:47 02/26/20 24 03/01/2024 IGP, CTNG, RFX APTIM A HPV ASCU chlamydia, nuc. acid amp Negati ve negati ve Not Available [facility] ([facility]) [address] [place], [address], 03/03/2024 10:07:14 02/26/20 24 03/01/2024 IGP, CTNG, RFX APTIM A HPV ASCU gonococcus, nuc. acid amp Negati ve negati ve Not Available [facility] ([facility]) [address] [place], [address], 03/03/2024 10:07:14 02/26/20 24 03/03/2024 IGP, CTNG, RFX APTIM A HPV ASCU diagnosis: Sheela BOYD FOR INTRA EPITH ELIAL LESIO N OR CINTHYA NESS . THIS SPECI MEN WAS RESCR EENED PART OF OUR QUALI TY CONTR OL PROGR AM. Not Available [facility] ([facility]) [address] [facility], [place], [address], 03/03/2024 10:07:14 02/26/20 24 03/03/2024 IGP, CTNG, RFX APTIM A HPV ASCU specimen adequacy: Sheela valle Satis roque dumont for evalu ation . Endoc ervic al and/o r squam ous metap lasti c cells (endo cervi owen compo nent) are prese nt. Not Available [facility] ([facility]) [address] [place], [address], 03/03/2024 10:07:14 02/26/20 24 03/03/2024 IGP, CTNG, RFX APTIM A HPV ASCU clinician provided ICD10: Sheela valle Z01.4 19 Not Available [facility] ([facility]) [address] [place], [address], 03/03/2024 10:07:14 02/26/20 24 03/03/2024 IGP, CTNG, RFX APTIM A HPV ASCU performed by: Sheela Morelos Prior , Cytot echno logis t (ASCP ) Not Available [facility] ([facility]) [address] [facility], [place], [address], 03/03/2024 10:07:14 02/26/20 24 03/03/2024 IGP, CTNG, RFX APTIM A HPV ASCU QC reviewed by: Sheela valle There sa J Byeradelina y, Cytot echno logis t (ASCP ) Not Available [facility] ([facility]) [address] [place], [address], 03/03/2024 10:07:14 02/26/20 24 03/03/2024 IGP, CTNG, RFX APTIM A HPV ASCU . . Not Available [facility] ([facility]) [address] [facility], [place], [address], 03/03/2024 10:07:14 02/26/20 24 03/03/2024 IGP, CTNG, RFX APTIM A HPV ASCU note: Sheela valle The Pap smear is a scree meghan test desig rowena to aid in the detec tion of domo ligna nt and malig nant condi tions of the uteri ne cervi x. It is not a diagn ostic proce dure and shoul d not be used as the sole means of detec ting cervi owen cance r. Both false -posi tive and false -nega tive repor ts do occur . Not Available [facility] ([facility]) [address] [facility], [place], [address], 03/03/2024 10:07:14 02/26/20 24 03/03/2024 IGP, CTNG, RFX APTIM A HPV ASCU test methodology: Sheela valle This liqui d based ThinP rep(R ) pap test was scree rowena with the use of an image guide sofía mccurdy. Not Available [facility] ([facility]) [address] [facility], [place], [address], 03/03/2024 10:07:14 02/26/20 24 03/03/2024 IGP, CTNG, RFX APTIM A HPV ASCU . Commen t The HPV DNA refle x crite paul were not met with this speci men resul t there fore, no HPV testi ng was perfo rmed. Not Available [facility] ([facility]) [address], [place], [address], 03/03/2024 10:07:14 Result Notes None recorded. Problems Name Problem SNOMED Code Status Onset Date Resolution Date Notes Provider Name and Address Organization Details Recorded Time Eczema [id number] Active 01/14/20 22 Renee blanco [place] - [facility], 01/13/2022 15:02:32 Problem Notes None recorded. Medical Equipment None Reported. Allergies No known drug allergies Medications Name Sig Start Date Stop Date Status Note LastModified by Organization Details LastModified Time Apri 0.15 mg-0.03 mg tablet TAKE 1 TABLET BY MOUTH EVERY DAY 2023 active Not Available Not Available Not Avai lable meloxicam 15 mg tablet TAKE 1 TABLET BY MOUTH EVERY DAY 01/13 completed Not Available Not Available Not Available sulfamethox azole 800 mg-trimetho prim 160 mg tablet TAKE 1 TABLET BY MOUTH TWICE A DAY FOR 10 DAYS 01/13 completed Not Available Not Available Not Available triamcinolo ne acetonide 0.1 % topical cream MIX WITH CERAVE TO MAKE FLUFF . APPLY TWICE DAILY FOR 14 DAYS TO START. 02/25 completed Not Available Not Available Not Available amoxicillin 500 mg tablet TAKE 1 TABLET BY MOUTH 3 TIMES A DAY UNTIL GONE 02/25 completed Not Available Not Available Not Available ketoconazol e 2 % topical cream APPLY TOPICALLY TO FACE EVERY DAY active Not Available Not Available No t Available ipratropium bromide 21 mcg (0.03 %) nasal spray 2 SPRAYS INTO EACH NOSTRIL 2 TO 3 TIMES A DAY NEEDED FOR ALLERGY SYMPTOMS 02/25 completed Not Available Not Available Not Available Denta 5000 Plus 1.1 % cream BRUSH NIGHTLY. DO NOT RINSE, EAT, OR DRINK FOR 30 MINUTES AFTER. active Not Available Not Available No t Available CeraVe topical cream MIX WITH TRIAMCINO LONE CREAM TO MAKE FLUFF . APPLY MIXTURE TWICE A DAY active Not Available Not Available No t Available Rinvoq 15 mg tablet,exte nded release 02/25 completed Not Available Not Available Not Available Ayden (28) 1 mg-35 mcg tablet TAKE 1 TABLET BY MOUTH EVERY DAY active Not Available Not Available No t Available Vitals Date Recorded Body weight Body mass index (BMI) Body height Body temperature Heart rate Systolic blood pressure Diastolic blood pressure Provider Name and Address Organization Details Last Updated DateTime 2 14463.1 5 g 32 kg/m2 152.4 cm 97.21 [degF] 82 /min 119 mm[Hg] 62 mm[Hg] Renee Fitzpatrick [place] - [facility], 2 15:00:47 Date Recorded Body weight Body mass index (BMI) Body height Heart rate Systolic blood pressure Diastolic blood pressure Provider Name and Address Organization Details Last Updated DateTime 3 02798.2 6 g 34.4 kg/m2 152.4 cm 64 /min 115 mm[Hg] 50 mm[Hg] Renee Fitzpatrick [place] - [facility], 3 14:02:13 Date Recorded Body weight Body mass index (BMI) Body height Body temperature Heart rate Systolic blood pressure Diastolic blood pressure Provider Name and Address Organization Details Last Updated DateTime 4 49122.5 9 g 35.5 kg/m2 153.67 cm 98.6 [degF] 82 /min 108 mm[Hg] 56 mm[Hg] Nicki Zhang [facility], 4 15:23:55 Social History Question Answer Notes LastModified by Organizat ion Details LastModified Time Tobacco Smoking Status Never Smoker Renee blanco [place] - [facility], 01/13/2022 15:04:51 What Is Your Level Of Alcohol Consumption? Occasional Information not available 01/13/2022 What Is Your Level Of Caffeine Consumption? None Information not available 01/13/2022 In The 14 Days Before Symptom Onset, Have You Had Close Contact With A Laboratory-chica miramontesed COVID-19 While That Case Was Ill? No Information not available 01/13/2022 In The 14 Days Before Symptom Onset, Have You Had Close Contact With A Person Who Is Under Investigation For COVID-19 While That Person Was Ill? No Information not available 01/13/2022 Have You Been To An Area Known To Be High Risk For COVID-19? No Information not available 01/13/2022 Are You Currently Employed? Yes Information not available 01/13/2022 What Is The Highest Grade Or Level Of School You Have Completed Or The Highest Degree You Have Received? [id number] Information not available 01/13/2022 Who Is Your Employer? 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 Yes Information not available 01/13/2022 To Which Gender Do You Self-identify? Female Information not available 01/13/2022 What Was The Date Of Your Most Recent Tobacco Screening? 02/26/2024 [email or web address] Information not available 02/26/2024 What Is Your Relationship Status? Single Has A Boyfriend Information not available 01/13/2022 Are You Sexually Active? Yes Information not available 01/13/2022 Do You Feel Stressed (tense, Restless, Nervous, Or Anxious, Or Unable To Sleep At Night)? [id number] Depends On Whats Going On At Work Information not available 01/13/2022 Do You Use Any Illicit Or Recreational Drugs? No Information not available 01/13/2022 Do You Or Have You Ever Used Any Other Forms Of Tobacco Or Nicotine? No Information not available 01/13/2022 How Many Days In The Past Year Have You Consumed 4 Or More Drinks? 0 Information not available 01/13/2022 Sex: Female Functional Status Question Answer Note LastModified by Organizat ion Details LastModified Time What is your exercise level? Occasional Information not available 01/13/2022 Mental Status None recorded. Family History Relationship Description Onset Age of this Age Resolved Age Notes LastModified by Organization Details LastModified Time Father No current problems or disability Not available 01/13 15:03:09 Mother No current problems or disability Not available 01/13 15:03:09 Mother Disorder of thyroid gland had it remove eliza [email or web address] Not available 02/26/2024 15:26:12 Medical History Condition Response Anesthesia complications N High Blood Pressure N Candidate for MyRisk panel N Autoimmune Condition N Depression N Lung Disease N Defects or Inherited Disease N History of Ovarian Cancer N BRCA testing in past N Anxiety Disorder N Arthritis N Infertility N History of Cancer N Endometriosis N Kidney or Bladder Problems N Thyroid Problems N GI Problems N Anemia N History of Breast Cancer N NOÉ exposure N Osteopenia N Psychiatric Illness N Diabetes N Headaches or Migraines N Asthma N Hepatitis N Heart Disease N Hypertension N Osteoporosis N Gynecological History Statement/Question Response Dysmenorrhea Y Flow Moderate Date of LMP 02/03/2024 Frequency of Cycle (Q days) 28 Menses Monthly Y Duration of Flow (days) 6 Age at Menarche 12 Current Control Method BCPs Obstetrics History GPAL:G 0 P 0 0 0 0 Immunizations Vaccine Type Date Status Note Provider Nam e and Address Organization Details Recorded Time meningococcal B, recombinant 0 completed Nicki Meczywor null, [place] - [facility], 02/26/2024 15:23:06 meningococcal B, recombinant 9 completed Nicki Meczywor null, [place] - [facility], 02/26/2024 15:23:06 Hep B, adolescent or pediatric 0 completed Nicki Meczywor null, [place] - [facility], 02/26/2024 15:23:06 Hep B, adolescent or pediatric 9 completed Nicki Meczywor null, [place] - [facility], 02/26/2024 15:23:06 Hep B, adolescent or pediatric 9 completed Nicki Meczywor null, [place] - [facility], 02/26/2024 15:23:06 Hep A, ped/adol, 2 dose 5 completed Nicki Meczywor null, [place] - [facility], 02/26/2024 15:23:06 meningococcal MCV4P 8 completed Nicki blanco [place] - [facility], 02/26/2024 15:23:06 Past Encounters Encounter ID Performer Location Encounter Start Date Encounter Closed Date Diagnosis/Indication Diagnosis SNOMED-CT Code Diagnosis ICD10 Code [id number] MD LORI Doherty MD [address] [facility] [place] [address] 01/13/2022 14:53:27 01/13/2022 15:56:44 Specialized medical examination 32326410 Z01.419 Venereal d isease screening 015697759 Z11.3 [id number] MD LORI Doherty MD [address] [facility] [place] [address] 01/27/2023 13:57:25 01/27/2023 14:20:40 Specialized medical examination 16211275 Z01.419 Venereal d isease screening 512598338 Z11.3 [id number] MD LORI Doherty MD [address] [facility] [place] [address] 02/26/2024 15:19:01 02/26/2024 16:01:03 Specialized medical examination 77704527 Z01.419 Venereal d isease screening 695760437 Z11.3 Health Concerns Section Related Observation LastModified by Organization Detai ls LastModified Time None Recorded Concern Status LastModified by Organization Details LastModified Time None Recorded Advance Directives Directive None Recorded Payers Encounter Date Sequence Insurance Name Policy Number Policy Davis Covered Member ID Davis Member ID Guarantor Name 01/13/2022 1 [place] [id number] Rony Levi [id number] Enrico Levi 01/27/2023 1 [place] [id number] Rony Levi [id number] Enrico Levi 02/26/2024 1 [place] [id number] Rony Levi [id number] Enrico Levi Notes Date Note Type Note Provider Name and Address Organization Details Recorded Time 01/13/2022 text/html She is here as a new patient for annual exam, it is her first pap. She takes the OCP with good results, remembers daily, and elects to continue. Same partner for 3 years. She works at [employer] in [place]. Lori Tomlinson MD [address], [place], [address], [facility], 01/13/2022 15:44:57 01/27/2023 text/html She is here for annual exam, doing well on ning OCP. She and her boyfriend just returned from vacation in [place]. Note from 2021: She is here as a new patient for annual exam, it is her first pap. She takes the OCP with good results, remembers daily, and elects to continue. Same partner for 3 years.She works at [employer] in [place]. Lori Tomlinson MD [address], [place], [address], [facility], 01/27/2023 14:16:11 02/26/2024 text/html She is here for annual, has noted worsening dysmenorrhea with cramping wiht ht elast several menses getting worse on her OCP. 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 Note from 2022: She is here for annual exam, doing well on ning OCP. She and her boyfriend just returned from vacation in [place]. Lori Tomlinson MD [address], [place], [address], [employer] in [facility], 02/26/2024 15:47:14 OBGyn Episode No OBEpisode recorded.
== END 2024-09-21 18:15 | disposition left against medical advice (07) ==
PROVIDERS: Emergency Provider Emergency Medicine; PCP Internal Medicine
DX: R05.9 Cough, unspecified (principal); R06.02 Shortness of breath; Z03.818 Encounter for observation for suspected exposure to other biological agents ruled out; J45.909 Unspecified asthma, uncomplicated
CPT/HCPCS: 0241U; 71045; 99281; 99283

== ENCOUNTER 2024-12-10 09:21 | Outpatient (REF) | payer BC, SELFPAY ==
--- OUTSIDE RECORDS SUMMARY | 2024-12-10 09:26 | XMS_ITS | Data Portability ---
Author Organization [place] - [facility],, LORI TOMLINSON MD Address [address] [address] Care Team Providers Care Ham Clerk Name Role Phone JARAD PALMER Primary Care Provider [phone] Assessment No assessment recorded. Plan of Treatment Reminders Order Date Submit Date Provider Last Modified By Organization Details Last Modified Time Details Appointments None recorded. Lab cytology report, thin prep, smear or scraping, cervical or vaginal 2023 024 [facility] (Centralized Electronic Ordering - All Locations), Patient Can Go To The Location Of Their Choice, [id number] 4 10:07:14 pap test, thinprep, cervical 2022 023 [facility] (Centralized Electronic Ordering - All Locations), Patient Can Go To The Location Of Their Choice, 3 07:32:33 chlamydia sp, culture, unspecifie d specimen 2022 023 [facility] (Centralized Electronic Ordering - All Locations), Patient Can Go To The Location Of Their Choice, 3 07:32:34 NG DNA, PCR, genital 2022 023 [facility] (Centralized Electronic Ordering - All Locations), Patient Can Go To The Location Of Their Choice, 3 07:32:34 pap test, thinprep, cervical 2021 022 [facility], Cytopathology Service, [address] [place], [address], 2 07:27:27 chlamydia sp, culture, unspecifie d specimen 2021 022 [facility], Cytopathology Service, [address] [place] [address], [id number], 2 07:30:24 NG DNA, PCR, genital 2021 022 [facility], Cytopathology Service, [address] [place] [address], [id number], 2 07:30:25 Referral None recorded. Procedures None recorded. Surgeries None recorded. Imaging None recorded. Medication Orders Alyacen (28) 1 mg-[address] [facility] #[id number], [address] [place] [address], [address], 4 15:43:16 Apri 0.15 mg-0.03 [address] [facility] #[id number], [address] [place] [address], [address], 3 14:15:43 Apri 0.15 mg-0.03 [address] [id number] [address] [place] [address], [address], 2 15:43:34 Patient TargetsNo targets recorded. Patient Instructions Encounter Date Encounter Id Patient Instructions Last Modified By Organization Details Last Modified Time 01/13/2022 [id number] learning about healthy weight Not available 01/13/2022 15:43:32 She is here as a new patient for annual exam, it is her first pap. She takes the OCP with good results, remembers daily, and elects to continue. Same partner for 3 years. She works at [employer] in [place]. We reviewed the interaction of the OCP [...] the breast. Not available 01/13/2022 15:44:12 01/27/2023 [id number] learning about healthy weight Not available 01/27/2023 14:15:24 She is here for annual exam, doing well on ning OCP. She and her boyfriend just returned from vacation in [place]. Note from 2021: She is here as a new patient for annual exam, it is her first pap. She takes the OCP with good results, remembers daily, and elects to continue. Same partner for 3 years. She works at [employer] in [place]. We reviewed the interaction of the OCP [...] the breast. Not available 01/27/2023 14:15:22 02/26/2024 [id number] learning about healthy weight Not available 02/26/2024 15:43:14 She is here for annual, has noted worsening dysmenorrhea with cramping wiht ht elast several menses getting worse on her OCP. 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 Note from 2022: She is here for annual exam, doing well on ning OCP. She and her boyfriend just returned from vacation in [place]. She appears to be doing well. . [...] LastModifiedTime 01/14/20 22 01/13/2022 GENER AL5CA SE [id number] Chlam ydia: NEGAT DEB N. sonya rhoea e: NEGAT DEB Compl eted on 01-15 CLINI OWEN INFOR MATIO N: LPS no resul ts, [Z01. 419, Z11.3 ] SOURC E: ThinP rep Pap for CT/GC Gross Descr iptio n: ThinP rep Vial Recei anisa. Physi bin HOU M.D./ [phone] Not Available [facility], Cytopathology Service [address] [facility], [place], [address], 01/15/2022 09:51:18 01/14/20 22 01/13/2022 PAP1C ASE [id number] ThinP rep Pap, Image d: NEGAT DEB FOR SQUAM OUS INTRA EPITH ELIAL LESIO N AND CINTHYA NESS . Note: The Pap test is a scree meghan test with an inher ent false negat deb rate. Autom ated presc reeni ng of all liqui d based speci mens is perfo rmed by the ThinP rep Imagi ng Syste m kalliees s other rolle state d. Annita Presley [...] 4, Z01.4 19, Z11.3 ] Not Available [facility], Cytopathology Service [address] [place], [address], 01/22/2022 14:40:47 01/28/20 23 01/28/2023 THIN PREP [...] C. Trach omati s Not Available [facility] (Centralized Electronic Ordering - All Locations) Patient Can Go To The Location Of Their Choice, [id number] 01/28/2023 16:02:42 01/28/20 23 01/28/2023 THIN PREP [...] neede d. Conta ct phone numbe r . Thera peuti c failu re or succe ss canno t be deter mined with the Aptim a Combo 2 assay since nucle ic acid may persi st follo wing appro priat e antim icrob ial thera py. The [facility] se Contr ol and Preve ntion ([facility]) recom mends confi rmato ry retes ting using cultu re or a diffe rent nucle ic acid ampli ficat ion test when posit deb resul ts occur , if indic ated. Not Available [facility] (Centralized Electronic Ordering - All Locations) Patient Can Go To The Location Of Their Choice, [id number] 01/28/2023 16:02:42 01/28/20 23 01/27/2023 [facility] CYTOL OGY results Patie nt Name: BERE LEVI nt : 2000 (Age: 22) Lab Acces amos #: [id number] Colle ction Date: 2022 Acces amos Date: 2022 Sign Out Date: 2022 Tissu e Sourc e: 1: THINP REP YOUTH MANAGER PAP TEST, CERVI OWEN: Final Diagn osis: [...] rep Imagi ng Syste m with chapo roche or loren guzman. Perfo rmed at [facility] ate Refer ence [facility] Cyt[facility], [address] [place] Clini owen Histo ry (othe r): Z01.4 19 Z11.3 LPS 01-13 NEGAT DEB ROUTI NE SCREE N Phone #: [phone], On-Ca ll Patho logis t: [id number] Not Available [facility] (Centralized Electronic Ordering - All Locations) Patient Can Go To The Location Of Their Choice, [id number] 02/02/2023 15:53:50 01/28/2001/27/[address]/GC AMPLI FIED PROBE results Cance lled, no spec recd after 7 days Not Available [facility] (Centralized Electronic Ordering - All Locations) Patient Can Go To The Location Of Their Choice, [id number] 02/03/2023 04:34:47 02/26/20 24 03/01/2024 IGP, CTNG, RFX APTIM A HPV ASCU chlamydia, nuc. acid amp Negati ve negati ve Not Available [facility] [address] [facility] [place], [address], 03/03/2024 10:07:14 02/26/20 24 03/01/2024 IGP, CTNG, RFX APTIM A HPV ASCU gonococcus, nuc. acid amp Negati ve negati ve Not Available [facility] ([facility]) [address] [place], [address], 03/03/2024 10:07:14 02/26/20 24 03/03/2024 IGP, CTNG, RFX APTIM A HPV ASCU diagnosis: Sheela OLMOS DEB FOR INTRA EPITH ELIAL LESIO N OR MALIG GROVER . THIS SPECI MEN WAS RESCR EENED PART OF OUR QUALI TY CONTR OL PROGR AM. Not Available [facility] ([facility]) [address] [place], [address], 03/03/2024 10:07:14 02/26/20 24 03/03/2024 IGP, CTNG, RFX APTIM A HPV ASCU specimen adequacy: Sheela valle Satis factmarino dumont for evalu ation . Endoc ervic al and/o r squam ous metap lasti c cells (endo cervi owen compo nent) are prese nt. Not Available [facility] ([facility]) [address] [place], [address], 03/03/2024 10:07:14 02/26/20 24 03/03/2024 IGP, CTNG, RFX APTIM A HPV ASCU clinician provided ICD10: Sheela valle Z01.4 19 Not Available [facility] ([facility]) [address] [place], [address], 03/03/2024 10:07:14 02/26/20 24 03/03/2024 IGP, CTNG, RFX APTIM A HPV ASCU performed by: Sheela Morelos Prior , Cytot echtolu hill t (ASCP ) Not Available [facility] ([facility]) [address] [place], [address], 03/03/2024 10:07:14 02/26/20 24 03/03/2024 IGP, CTNG, RFX APTIM A HPV ASCU QC reviewed by: Sheela Mancilla, Cytot lilibeth valle (ASCP ) Not Available [facility] ([facility]) [address] [facility], [place], [address], 03/03/2024 10:07:14 02/26/20 24 03/03/2024 IGP, CTNG, RFX APTIM A HPV ASCU . . Not Available [facility] ([facility]) [address] [facility], [place], [address], 03/03/2024 10:07:14 02/26/20 24 03/03/2024 IGP, CTNG, [...] ts do occur . Not Available [facility] ([facility]) [address] [facility], [place], [address], 03/03/2024 10:07:14 02/26/20 24 03/03/2024 IGP, CTNG, RFX APTIM A HPV ASCU test methodology: Sheela valle This liqui d based ThinP rep(R ) pap test was scree rowena with the use of an image guide sofía stephenson Not Available [facility] ([facility]) [address] [facility], [place], [address], 03/03/2024 10:07:14 02/26/20 24 03/03/2024 IGP, CTNG, RFX APTIM A HPV ASCU . Commen t The HPV DNA refle x crite paul were not met with this speci men resul t there fore, no HPV testi ng was perfo rmed. Not Available [facility] ([facility]) [address], [place], [address], 03/03/2024 10:07:14 Result Notes None recorded. Problems Name Problem SNOMED Code Status Onset Date Resolution Date Notes Provider Name and Address Organization Details Recorded Time Eczema 52657430 Active 01/14/20 22 Renee blanco [place] - [facility], 01/13/2022 15:02:32 Problem Notes None [...] Address Organization Details Last Updated DateTime 2 68611.1 5 g 32 kg/m2 152.4 cm 97.21 [degF] 82 /min 119 mm[Hg] 62 mm[Hg] Renee Zhang [facility], 2 15:00:47 Date Recorded Body weight Body mass index (BMI) Body height Heart rate Systolic blood pressure Diastolic blood pressure Provider Name and Address Organization Details Last Updated DateTime 3 77174.2 6 g 34.4 kg/m2 152.4 cm 64 /min 115 mm[Hg] 50 mm[Hg] Renee Fitzpatrick [place] - [facility], 3 14:02:13 Date Recorded Body weight Body mass index (BMI) Body height Body temperature Heart rate Systolic blood pressure Diastolic blood pressure Provider Name and Address Organization Details Last Updated DateTime 4 49628.5 9 g 35.5 kg/m2 153.67 cm 98.6 [degF] 82 /min 108 mm[Hg] 56 mm[Hg] Nicki Weston [place] - [facility], 4 15:23:55 Social History Question Answer Notes LastModified by Organizat ion Details LastModified Time Tobacco Smoking Status Never Smoker Renee blanco [place] - [facility], 01/13/2022 15:04:51 What Is Your Level [...] Or The Highest Degree You Have Received? [id number] Information not available 01/13/2022 Who Is Your Employer? 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 [id number] Depends On Whats Going On At Work [...] No current problems or disability Not available 04/04 /2022 15:03:09 Mother No current problems or disability Not available 01/13 15:03:09 Mother Disorder of thyroid gland had it remove dRebecca escalonaczywor Not available 02/26/2024 15:26:12 Medical History Condition Response Anesthesia complications N High Blood Pressure N Candidate for MyRisk panel N Autoimmune Condition N Thyroid Problems N Kidney or Bladder Problems N Depression N GI Problems N Lung Disease N Defects or Inherited Disease N Anemia N History of Ovarian Cancer N History of Breast Cancer N NOÉ exposure N BRCA testing in past N Osteopenia N Psychiatric Illness N Diabetes N Anxiety Disorder N Arthritis N Headaches or Migraines N Infertility N Asthma N History of Cancer N Endometriosis N Hepatitis N Heart Disease N Hypertension [...] meningococcal B, recombinant 0 completed Nicki Meczywor francis [place] [facility], 02/26/2024 15:23:06 meningococcal B, recombinant 9 completed Nicki Meczywor francis [place] [facility], 02/26/2024 15:23:06 Hep B, adolescent or pediatric 0 completed Nicki Meczywor francis [place] [facility], 02/26/2024 15:23:06 Hep B, adolescent or pediatric 9 completed Nicki Meczywor null [place] [facility], 02/26/2024 15:23:06 Hep B, adolescent or pediatric 9 completed Nicki Meczywor francis [place] [facility], 02/26/2024 15:23:06 Hep A, ped/adol, 2 dose 5 completed Nicki Meczywor francis [place] [facility], 02/26/2024 15:23:06 meningococcal MCV4P 8 completed Nicki Meczywor null, [place] [facility], 02/26/2024 15:23:06 Past Encounters Encounter ID Performer Location Encounter Start Date Encounter Closed Date Diagnosis/Indication Diagnosis SNOMED-CT Code Diagnosis ICD10 Code Diagnosis Note [id number] MD LORI Doherty MD [address] [facility] [place] [address] 01/13/2022 14:53:27 01/13/2022 15:56:44 Specialized medical examination 26616113 Z01.419 Venereal d isease screening 278771768 Z11.3 [id number] MD LORI Doherty MD [address] [facility] [place] [address] 01/27/2023 13:57:25 01/27/2023 14:20:40 Specialized medical examination 60622433 Z01.419 Venereal d isease screening 721811803 Z11.3 [id number] MD LORI Doherty MD [address] [facility] [place] [address] 02/26/2024 15:19:01 02/26/2024 16:01:03 Specialized medical examination 50278850 Z01.419 Venereal d isease screening 771534420 Z11.3 Health Concerns Section Related Observation LastModified by Organization Detai ls LastModified Time None Recorded Concern Status LastModified by Organization Details LastModified Time None Recorded Advance Directives Directive None Recorded Payers Encounter Date Sequence Insurance Name Policy Number Policy Davis Covered Member ID Davis Member ID Guarantor Name 01/13/2022 1 [place] [id number] Rony Levi [id number] Enrico Levi 01/27/2023 1 [place] [id number] Rony Levi [id number] Enrico Levi 02/26/2024 1 [place] [id number] Rony Levi [id number] Enrico Edmond Notes Date Note Type Note Provider Name and Address Organization Details Recorded Time 01/13/2022 text/html She is here as a new patient for annual exam, it is her first pap. She takes the OCP with good results, remembers daily, and elects to continue. Same partner for 3 years. She works at [employer] in [place]. Lori Tomlinson MD [address], [place], [address], [email or web address] in [facility], 01/13/2022 15:44:57 01/27/2023 text/html She is here for annual exam, doing well on ning OCP. She and her boyfriend just returned from vacation in [place]. Note from 2021: She is here as a new patient for annual exam, it is her first pap. She takes the OCP with good results, remembers daily, and elects to continue. Same partner for 3 years.She works at [employer] in [place]. Lori Tomlinson MD [address] [facility],[address], [place], [address], [email or web address] [facility], 01/27/2023 14:16:11 02/26/2024 text/html She is here for annual, has noted worsening dysmenorrhea with cramping wiht ht elast several menses getting worse on her OCP. 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 Note from 2022: She is here for annual exam, doing well on ning OCP. She and her boyfriend just returned from vacation in [place]. Lori Tomlinson MD [address], [place], [address], [employer] in [facility], 02/26/2024 15:47:14 OBGyn Episode No OBEpisode recorded.
[2024-12-10 09:40] LABS: MANUAL DIFF FLAG NO
[2024-12-10 11:08] LABS: Basophils Percent Auto 0.4 % (0-2); Eosinophils Absolute Auto 0.2 X10*3/uL (0.0-0.4); Eosinophils Percent Auto 3.1 % (0-4); Hematocrit 38.7 % (37.0-47.0); Hemoglobin 12.4 g/dl (12.0-16.0); Imm Gran Abs Auto 0.02 X10*3/uL (0.00-0.03); Imm Gran Pct Auto 0.3 % (0.0-0.4); Lymphocytes Absolute Auto 3.4 X10*3/uL (1.2-4.9); Lymphocytes Percent Auto 45.5 % (20-40); Mean Corpuscular Hemoglobin 25.9 pg (27.0-33.0); Mean Corpuscular Volume 80.8 fL (80.0-98.0); Mean Platelet Volume 9.4 fL (9.4-12.3); Monocytes Absolute Auto 0.5 X10*3/uL (0.1-1.2); Monocytes Percent Auto 7.2 % (2-11); Neutrophils Absolute Auto 3.2 x10*3/uL (2.0-8.3); Neutrophils Percent Auto 43.5 % (45-73); Platelet Count 415 X10*3/uL (160-400); Red Blood Count 4.79 X10*6/uL (4.20-5.50); White Blood Count 7.4 X10*3/uL (4.8-10.8)
[2024-12-10 12:08] LABS: Alanine Aminotransferase 7 U/L (0-31); Albumin Level 3.7 g/dL (3.5-5.0); Alkaline Phosphatase 82 U/L (39-117); Anion Gap 10 (12-20); Aspartate Amino Transferase 17 U/L (5-31); Bilirubin Total 0.2 mg/dL (0.0-1.0); Blood Urea Nitrogen 17 mg/dL (9-16); Calcium 9.3 mg/dL (8.4-10.2); Carbon Dioxide 23 mmol/L (22-29); Chloride 110 mmol/L (96-108); Cholesterol 197 mg/dL (<200); Estimated Glomerular Filt Rate > 60; Glucose Random 75 mg/dL (60-115); HDL Cholesterol 49 mg/dL (>40); LDL Cholesterol Calculated 132 mg/dL (<100); Potassium 4.4 mmol/L (3.3-5.1); Sodium 139 mmol/L (135-145); Total Protein 7.8 g/dL (6.5-8.0); Triglycerides 82 mg/dL (<150)
[2024-12-12 09:13] LABS: HBsAGNum1 0.36 S/CO (0.00-0.99); HIV AB/AG Nonreactive (Nonreactive); HIV Num 1 0.06 S/CO (0.00-0.99); Hepatitis B Surface Antigen Negative (Negative); ~HepC Num1 0.91 S/CO (0.00-0.79)
[2024-12-12 10:10] LABS: ~HepC Num2 0.87; ~HepC Num3 0.81; ~Hepatitis C Antibody GRAYZONE (Nonreactive)
== END 2024-12-10 09:22 | disposition home or self-care (01) ==
LOC: HO.LAB 09:21
PROVIDERS: PCP Internal Medicine; Visit Provider Nurse Practitioner Family
DX: L20.84 Intrinsic (allergic) eczema (principal); Z79.899 Other long term (current) drug therapy
CPT/HCPCS: 36415; 80053; 80061; 85025; 86803; 87340; 87389

== ENCOUNTER 2025-05-24 11:23 | Outpatient (REF) | payer BC, SELFPAY ==
[2025-05-24 11:33] LABS: MANUAL DIFF FLAG NO
[2025-05-24 12:02] LABS: Hematocrit 37.3 % (37.0-47.0); Hemoglobin 12.0 g/dl (12.0-16.0); Imm Gran Abs Auto 0.01 X10*3/uL (0.00-0.03); Imm Gran Pct Auto 0.1 % (0.0-0.4); Lymphocytes Absolute Auto 3.3 X10*3/uL (1.2-4.9); Mean Corpuscular HGB Conc 32.2 g/dl (31.0-35.0); Mean Corpuscular Hemoglobin 27.0 pg (27.0-33.0); Mean Corpuscular Volume 84.0 fL (80.0-98.0); NRBC Abs Auto 0.000 X10*3/uL (0.0-0.012); NRBC Pct Auto 0.0 /100WBC (0.0-0.2); Platelet Count 450 X10*3/uL (160-400); Red Blood Count 4.44 X10*6/uL (4.20-5.50); White Blood Count 7.1 X10*3/uL (4.8-10.8)
[2025-05-24 12:29] LABS: Alanine Aminotransferase 9 U/L (0-31); Albumin Level 4.0 g/dL (3.5-5.0); Alkaline Phosphatase 74 U/L (39-117); Anion Gap 9 (12-20); Aspartate Amino Transferase 19 U/L (5-31); Blood Urea Nitrogen 14 mg/dL (9-16); Calcium 9.0 mg/dL (8.4-10.2); Carbon Dioxide 24 mmol/L (22-29); Chloride 110 mmol/L (96-108); Cholesterol 240 mg/dL (<200); Estimated Glomerular Filt Rate > 60; HDL Cholesterol 52 mg/dL (>40); Potassium 4.2 mmol/L (3.3-5.1); Sodium 139 mmol/L (135-145); Total Protein 7.3 g/dL (6.5-8.0); Triglycerides 151 mg/dL (<150)
== END 2025-05-24 11:24 | disposition home or self-care (01) ==
LOC: HO.LAB 11:23
PROVIDERS: PCP Internal Medicine; Visit Provider Nurse Practitioner Family
DX: Z51.81 Encounter for therapeutic drug level monitoring (principal); L20.89 Other atopic dermatitis; Z79.899 Other long term (current) drug therapy
CPT/HCPCS: 36415; 80053; 80061; 85025

== ENCOUNTER 2025-09-28 07:47 | Outpatient (REF) | payer BC, SELFPAY ==
--- NOTE | ~2025-09-28 | FL_ITS ---
EXAMINATION: Upper GI air contrast study CLINICAL INFORMATION: Gastroesophageal reflux disease without esophagitis. COMPARISON: None available. TECHNIQUE: Routine upper GI air contrast study was performed in upright and lying position. FINDINGS: Following oral administration of thick barium and effervescent granules there is normal propagation of bolus from the oral cavity , through the esophagus into stomach without obstruction, narrowing or stricture. The there is no acute intrinsic obstruction or extrinsic compression. On placing patient supine and prone lying the course, caliber and peristalsis of the stomach, duodenal bulb and sweep is normal. There is no gastroesophageal reflux or hiatal hernia seen at this time in spite of provocative testing. FLUOROSCOPY TIME: 2 minute 32 seconds DOSE AREA PRODUCT: 2864 uGy-m2 (microgray-meter squared) FL/FL upper GI series IMPRESSION: Unremarkable upper GI air contrast study. Electronically signed by: Kiet Barbosa MD 09/28/2025 10:32 AM [facility]
--- OUTSIDE RECORDS SUMMARY | 2025-09-28 07:50 | XMS_ITS | Continuity of Care Document ---
Author Organization [place] [facility],, LORI LI MD Address [address] [place] [address] Care Team Providers Care Natural Sciences Department Chair Name Role Phone JARAD PALMER Primary Care Provider Assessment No assessment recorded. Plan of Treatment Reminders Order Date Submit Date Provider Last Modified By Organization Details Last Modified Time Details Appointments None recorded. Lab cytology report, thin prep, smear or scraping, cervical or vaginal 2024 025 [facility] (Centralized Electronic Ordering - All Locations), Patient Can Go To The Location Of Their Choice, [address] 14:16:03 Referral None recorded. Procedures None recorded. Surgeries None recorded. Imaging None recorded. Medication Orders Alyacen 135 (28) 1 mg-35 mcg tablet 2024 025 [place] [id number], [address], [place], [address], 15:45:44 Patient TargetsNo targets recorded. Patient Instructions Encounter Date Encounter Id Patient Instructions Last Modified By Organization Details Last Modified Time 06/29/2025 [id number] learning about healthy weight Not available 06/29/2025 15:45:42 She is here for annual, doing well on her 35 mcg OCP. We had gone up from 30 to 35 mcg and this did solve the dysmenorrhea issues. Note from 2023: She is here for annual, has noted worsening dysmenorrhea with cramping wiht ht elast several menses getting worse on her OCP. 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 She appears to be doing well. We reviewed the interaction of the OCP [...] rx to be called in to pharmacy. Monthly self breast exam was taught, and stressed, and is advised to call if she discovers any new mass in the breast. Not available 06/29/2025 15:55:23 Reason for Referral None Reported. Results Created Date Observation Date Name Description Value Unit Range Abnormal Flag Note LastModifiedBy Organization Detail LastModifiedTime 06/29/2006/30/2025 IGP, CTNG, RFX APTIM A HPV ASCU chlamydia, nuc. acid amp Negati ve negati ve Not Available [facility] ([facility]) [address] [place], [address], 07/03/2025 14:16:02 06/29/2006/30/2025 IGP, CTNG, RFX APTIM A HPV ASCU gonococcus, nuc. acid amp Negati ve negati ve Not Available [facility] ([facility]) [address] [place], [address], 07/03/2025 14:16:02 06/29/2007/03/2025 IGP, CTNG, RFX APTIM A HPV ASCU diagnosis: Commen t NEGAT DEB FOR INTRA EPITH ELIAL LESIO N OR CINTHAY NESS . Not Available [facility] ([facility]) [address] [place], [address], 07/03/2025 14:16:02 06/29/20 25 07/03/2025 IGP, CTNG, RFX APTIM A HPV ASCU specimen adequacy: Sheela valle Satis facto ry for evalu ation . No endoc ervic al compo nent is ident ified . Not Available [facility] ([facility]) [address] [place], [address], 07/03/2025 14:16:02 06/29/20 25 07/03/2025 IGP, CTNG, RFX APTIM A HPV ASCU clinician provided ICD10: Sheela valle Z01.4 19 Not Available [facility] ([facility]) [address] [place], [address], 07/03/2025 14:16:02 06/29/20 25 07/03/2025 IGP, CTNG, RFX APTIM A HPV ASCU performed by: Sheela abad, Cytol ogist (ASCP ) Not Available [facility] ([facility]) [address] [place], [address], 07/03/2025 14:16:02 06/29/20 25 07/03/2025 IGP, CTNG, RFX APTIM A HPV ASCU . . Not Available [facility] ([facility]) [address] [place], [address], 07/03/2025 14:16:02 06/29/20 25 07/03/2025 IGP, CTNG, RFX APTIM A HPV ASCU [...] ts do occur . Not Available [facility] ([facility]) [address] [place], [address], 07/03/2025 14:16:02 06/29/20 25 07/03/2025 IGP, CTNG, RFX APTIM A HPV ASCU test methodology: Commen t This liqui d based ThinP rep(R ) pap test was iván guaman with the use of an image guide sofía stephenson Not Available [facility] ([facility]) [address] [place], [address], 07/03/2025 14:16:02 06/29/20 25 07/03/2025 IGP, CTNG, RFX APTIM A HPV ASCU . Commen t The HPV DNA refle x crite paul were not met with this speci men ct t there fore, no HPV testi ng was perfo rmed. Not Available [facility] ([facility]) [address] [facility], [place], [address], 07/03/2025 14:16:02 Result Notes None recorded. Problems Name Problem SNOMED Code Status Onset Date Resolution Date Notes Provider Name and Address Organization Details Recorded Time Eczema 82823999 Active 01/14/20 Renee blanco [place] [facility], 01/13/2022 15:02:32 Problem Notes None recorded. Medical Equipment None Reported. Allergies No known drug allergies Medications Name Sig Start Date Stop Date Status Note LastModified by Organization Details LastModified Time amoxicillin 500 mg capsule TAKE 1 CAPSULE BY MOUTH EVERY 12 HOURS FOR 7 DAYS 04/28 completed Not Available Not Available Not Available Apri 0.15 mg-0.03 mg tablet TAKE 1 TABLET BY MOUTH EVERY DAY 06/29 completed Not Available Not Available Not Available meloxicam 15 mg tablet TAKE 1 TABLET [...] mg tablet TAKE 1 TABLET BY MOUTH 4 TIMES DAILY UNTIL GONE 04/28 completed Not Available Not Available Not Available pantoprazol e 40 mg tablet,jackelyn yed release TAKE 1 TABLET BY MOUTH ONCE A DAY active Not Available Not Available No t Available ibuprofen 600 mg tablet TAKE 1 TABLET BY MOUTH EVERY 6 HOURS NEEDED FOR PAIN active Not Available Not Available No t Available ketoconazol e 2 % topical cream APPLY TOPICALLY TO FACE EVERY DAY active Not Available Not Available No t Available ipratropium bromide 21 mcg (0.03 %) nasal spray 2 SPRAYS INTO EACH NOSTRIL 2 TO 3 TIMES A DAY NEEDED FOR ALLERGY SYMPTOMS 02/25 completed Not Available Not Available Not Available oxycodone 5 mg tablet TAKE 1 TABLET BY MOUTH EVERY 4 HOURS NEEDED FOR PAIN 06/29 completed Not Available Not Available Not Available Denta 5000 Plus 1.1 % cream BRUSH NIGHTLY. DO NOT RINSE, EAT, OR DRINK FOR 30 MINUTES AFTER. active Not Available Not Available No t Available CeraVe topical cream MIX WITH TRIAMCINO LONE CREAM TO MAKE FLUFF . APPLY MIXTURE TWICE A DAY active Not Available Not Available No t Available Alyacen 1/35 (28) 1 mg-35 mcg tablet Take 1 tablet every day by oral route. 2024 active Not Available Not Available Not Avai labzee guaifenesin ER 600 mg tablet, extended release 12 hr TAKE 1 TABLET BY MOUTH 2 TIMES A DAY FOR 5 DAYS 06/29 completed Not Available Not Available Not Available Rinvoq 15 mg tablet,exte nded release 02/25 completed Not Available Not Available Not Available Vitals Date Recorded Body weight Body mass index (BMI) Body height Heart rate Systolic And Diastolic Provider Name and Address Organization Details Last Updated DateTime 06/29/2025 44171.37 g 35.5 kg/m2 154.94 cm 81 /min 116/59 mm[Hg] Nicki Weston [place] - [facility], 06/29/2025 15:41:26 Social History Question Answer Notes LastModified by Organizat ion Details LastModified Time Tobacco Smoking Status Never Smoker Renee blanco [place] - [facility], 01/13/2022 15:04:51 What Is Your Level Of Caffeine Consumption? None Information not available 01/13/2022 In The 14 Days Before Symptom Onset, Have You Had Close Contact With A Laboratory-confir med COVID-19 While That Case Was Ill? No Information not available 01/13/2022 In The 14 Days Before Symptom Onset, Have You Had Close Contact With A Person Who Is Under Investigation For COVID-19 While That Person Was Ill? No Information not available 01/13/2022 Have You Been To An Area Known To Be High Risk For COVID-19? No Information not available 01/13/2022 What Is The Highest Grade Or Level Of School You Have Completed Or The Highest Degree You Have Received? [id number] Information not available 01/13/2022 Who Is Your Employer? [employer] Information not available 01/13/2022 Are There Any Guns Present In Your Home? Yes Information not available 01/13/2022 To Which Gender Do You Self-identify? Female Information not available 01/13/2022 What Was The Date Of Your Most Recent Tobacco Screening? 06/29/2025 [email or web address] Information not available 06/29/2025 What Is Your Relationship Status? Single Has A Boyfriend Information not available 01/13/2022 Are You Sexually Active? Yes Information not available 01/13/2022 How Many Days In The Past Year Have You Consumed 4 Or More Drinks? 0 Information no t available 01/13/2022 Sex: Female Functional Status Question Answer Note LastModified by Organizat ion Details LastModified Time Do you use any illicit or recreational drugs? No Information not available 01/13/2022 Do you or have you ever used any other forms of tobacco or nicotine? No Information not available 01/13/2022 What is your level of alcohol consumption? Occasional Information not available 01/13/2022 Are you currently employed? 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 Occasional Information not available 01/13/2022 Mental Status Question Answer Note LastModified by Organizat ion Details LastModified Time Do you feel stressed (tense, restless, nervous, or anxious, or unable to sleep at night)? [id number] Depends on whats going on at work Information not available 01/13/2022 Family History Relationship Description Onset Age of this Age Resolved Age Notes LastModified by Organization Details LastModified Time Father No current problems or disability Not available 01/13 15:03:09 Mother No current problems or disability Not available 01/13 15:03:09 Mother Disorder of thyroid gland had it remove d. [email or web address] Not available 02/26/2024 15:26:12 Medical History Condition Response Anesthesia complications N High Blood Pressure N Candidate for MyRisk panel N Autoimmune Condition N Thyroid Problems N Kidney or Bladder Problems N GI Problems N Lung Disease N Depression N Defects or Inherited Disease N Anemia N History of Ovarian Cancer N History of Breast Cancer N NOÉ exposure N BRCA testing in past N Osteopenia N Psychiatric Illness N Anxiety Disorder N Diabetes N Arthritis N Headaches or Migraines N Infertility N Asthma N History of Cancer N Endometriosis N Hepatitis N Heart Disease N Hypertension N Osteoporosis N Gynecological History Statement/Question Response Dysmenorrhea Y Flow Moderate Date of LMP 06/14/2025 Frequency of Cycle (Q days) 28 Menses Monthly Y Duration of Flow (days) 6 Age at Menarche 12 Current Control Method BCPs Obstetrics History GPAL:G 0 P 0 0 0 0 Immunizations Vaccine Type Date Status Note Provider Nam e and Address Organization Details Recorded Time meningococcal B, recombinant 0 completed Nicki Meczanilwamber blanco [place] [facility], 02/26/2024 15:23:06 meningococcal B, recombinant 9 completed Nicki Meczywor francis [place] [facility], 02/26/2024 15:23:06 Hep B, adolescent or pediatric 0 completed Nicki Meczywor francis [place] [facility], 02/26/2024 15:23:06 Hep B, adolescent or pediatric 9 completed Nicki Meczywamber blanco [place] [facility], 02/26/2024 15:23:06 Hep B, adolescent or pediatric 9 completed Nicki Meczywor null, [place] [facility], 02/26/2024 15:23:06 Hep A, ped/adol, 2 dose 5 completed Nicki Meczywor null, [place] [facility], 02/26/2024 15:23:06 meningococcal MCV4P 8 completed Nicki Meczywor null, [place] [facility], 02/26/2024 15:23:06 Past Encounters Encounter ID Performer Location Encounter Start Date Encounter Closed Date Diagnosis/Indication Diagnosis SNOMED-CT Code Diagnosis ICD10 Code Diagnosis IMO Codes Diagnosis Note [id number] MD LORI Doherty MD [address] [place] [address] 06/29/2025 15:18:48 06/30/2025 09:46:18 Specialized medical examination 52043160 Z01.419 Venereal d isease screening 300969294 Z11.3 Health Concerns Section Related Observation LastModified by Organization Detai ls LastModified Time None Recorded Concern Status LastModified by Organization Details LastModified Time None Recorded Payers Encounter Date Sequence Insurance Name Policy Number Policy [place] Covered Member ID Davis Member ID Guarantor Name 06/29/2025 1 [employer] [id number] Rony Pruitt [id number] Enrico Pruitt Notes Date Note Type Note Provider Name and Address Organization Details Recorded Time 06/29/2025 text/html She is here for annual, doing well on her 35 mcg OCP. We had gone up from 30 to 35 mcg and this did solve the dysmenorrhea issues. 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 Lroi Li MD [address], [place], [address], [place] [facility], 06/29/2025 15:55:38 OBGyn Episode No OBEpisode recorded.
--- OUTSIDE RECORDS SUMMARY | 2025-09-28 07:50 | XMS_ITS | Data Portability ---
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 Plan of Treatment Reminders Order Date Submit Date Provider Last Modified By Organization Details Last Modified Time Details Appointments None recorded. Lab cytology report, thin prep, smear or scraping, cervical or vaginal 2024 025 [facility] (Centralized Electronic Ordering - All Locations), Patient Can Go To The Location Of Their Choice, [id number] 5 14:16:03 cytology report, thin prep, smear or scraping, cervical or vaginal 2023 024 [facility] (Centralized Electronic Ordering - All Locations), Patient Can Go To The Location Of Their Choice, [id number] 4 10:07:14 pap test, thinprep, cervical 2022 023 [facility] (Centralized Electronic Ordering - All Locations), Patient Can Go To The Location Of Their Choice, [id number] 3 07:32:33 chlamydia sp, culture, unspecifi ed specimen 2022 023 [facility] (Centralized Electronic Ordering - All Locations), Patient Can Go To The Location Of Their Choice, [id number] 3 07:32:34 NG DNA, PCR, genital 2022 023 [facility] (Centralized Electronic Ordering - All Locations), Patient Can Go To The Location Of Their Choice, [id number] 3 07:32:34 pap test, thinprep, cervical 2021 022 [facility], Cytopathology Service, [address] [place] [address], [address], 2 07:27:27 chlamydia sp, culture, unspecifi ed specimen 2021 022 [facility], Cytopathology Service, [address] [place] [address], [address], 2 07:30:24 NG DNA, PCR, genital 2021 022 [facility], Cytopathology Service, [address] [place] [address], [address], 2 07:30:25 Referral None recorded. Procedures None recorded. Surgeries None recorded. Imaging None recorded. Medication Orders Alyacen 1/35 (28) 1 mg-35 mcg tablet 2024 025 [facility]/Pharmacy #[id number], [address] [place] [address], [address], 5 15:45:44 Alyacen 1/35 (28) 1 mg-35 mcg tablet 2023 024 [facility]/Pharmacy #[id number], [address] [place] [address], [address], 4 15:43:16 Apri 0.15 mg-0.03 mg tablet 2022 023 [facility]/Pharmacy #[id number], [address] [place] [address], [address], 5 15:42:01 Apri 0.15 mg-0.03 mg tablet 2021 022 [facility]/Pharmacy #[id number], [address] [place] [address], [address], 5 15:42:01 Patient TargetsNo targets recorded. Patient Instructions Encounter Date Encounter Id Patient Instructions Last Modified By Organization Details Last Modified Time 01/13/2022 [id number] learning about healthy weight Not available 01/13/2022 15:43:32 She is here as a new patient for annual exam, it is her first pap. She takes the OCP with good results, remembers daily, and elects to continue. Same partner for 3 years. She works at [employer] in [place]. We reviewed the interaction of the OCP [...] the breast. Not available 01/13/2022 15:44:12 01/27/2023 [id number] learning about healthy weight Not available 01/27/2023 14:15:24 She is here for annual exam, doing well on ning OCP. She and her boyfriend just returned from vacation in [place]. Note from 2021: She is here as a new patient for annual exam, it is her first pap. She takes the OCP with good results, remembers daily, and elects to continue. Same partner for 3 years. She works at [employer] in [place]. We reviewed the interaction of the OCP [...] the breast. Not available 01/27/2023 14:15:22 02/26/2024 [id number] learning about healthy weight Not available 02/26/2024 15:43:14 She is here for annual, has noted worsening dysmenorrhea with cramping wiht ht elast several menses getting worse on her OCP. 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 Note from 2022: She is here for annual exam, doing well on ning OCP. She and her boyfriend just returned from vacation in [place]. She appears to be doing well. . [...] in to pharmacy. Not available 02/26/2024 15:46:46 06/29/2025 [id number] learning about healthy weight Not available 06/29/2025 [...] her OCP. 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 She [...] LastModifiedTime 01/14/20 22 01/13/2022 GENER AL5CA SE [id number] Chlam ydia: NEGAT DEB N. sonya brown e: NEGAT DEB Compl eted on 01-15 CLINI OWEN INFOR MATIO N: LPS no resul ts, [Z01. 419, Z11.3 ] SOURC E: ThinP rep Pap for CT/GC Gross Descr iptio n: ThinP rep Vial Recei anisa. Physi bin HOU M.D./ [phone] Not Available [facility], Cytopathology Service [address] [facility], [place], [address], 01/15/2022 09:51:18 01/14/20 22 01/13/2022 PAP1C ASE [email or web address] ThinP rep Pap, Image d: NEGAT DEB FOR SQUAM OUS INTRA EPITH ELIAL LESIO N AND MALIG GROVER . Note: The Pap test is a scree meghan test with an inher ent false negat deb rate. Autom ated presc reeni ng of all liqui d based speci mens is perfo rmed by the ThinP rep Imagi ng Syste m unles s other rolle state d. Annita Ellsworthut hers , CT( CP) (Case elect jalil simon carter d 01 22 2022) ADEQU ACY: Satis facto ry Endoc ervic al/tr ansfo rmati on zone compo nent absen t. SOURC E: ThinP rep Pap HPV IF ASCUS , Cervi owen, Image d CLINI OWEN INFOR MATIO N: HPV If Diagn osis of ASCUS . [Z12. 4, Z01.4 19, Z11.3 ] Not Available [facility], Cytopathology Service [address] [facility], [place], [address], 01/22/2022 14:40:47 01/28/20 23 01/28/2023 THIN PREP [...] Go To The Location Of Their Choice, [id number] 01/28/2023 16:02:42 01/28/20 23 01/28/2023 THIN PREP [...] Disea se Contr ol and Preve ntion ([facility]) recom mends confi rmato ry retes ting using cultu re or a diffe rent nucle ic acid ampli ficat ion test when posit deb resul ts occur , if indic ated. Not Available [facility] (Centralized Electronic Ordering - All Locations) Patient Can Go To The Location Of Their Choice, [id number] 01/28/2023 16:02:42 01/28/20 23 01/27/2023 [facility] CYTOL OGY results Patie nt Name: BERE LEVI nt : 2000 (Age: 22) Lab Acces amos #: [id number] Colle ction Date: 2022 Acces aoms Date: 2022 Sign Out Date: 2022 Tissu e Sourc e: 1: THINP REP CREDIT COUNSELOR PAP TEST, CERVI OWEN: Final Diagn osis: NEGAT DEB FOR INTRA EPITH ELIAL LESIO N OR CINTHYA NESS . Satis facto ry for evalu ation [...] Syste m with chapo roche or loren rene Perfo rmed at [facility] ate Refer ence [facility] Cytol o[facility], [address] [place] Clini owen Histo ry (othe r): Z01.4 19 Z11.3 LPS 01-13 NEGAT DEB ROUTI NE SCREE N Phone #: [phone], On-Ca ll Patho logis t: [id number] Not Available [facility] (Centralized Electronic Ordering - All Locations) Patient Can Go To The Location Of Their Choice, [id number] 02/02/2023 15:53:50 01/28/20 23 01/27/[address]/GC AMPLI FIED PROBE results Cance lled, no spec recd after 7 days Not Available [facility] (Centralized Electronic Ordering - All Locations) Patient Can Go To The Location Of Their Choice, [id number] 02/03/2023 04:34:47 02/26/2003/01/2024 IGP, CTNG, RFX APTIM A HPV ASCU chlamydia, nuc. acid amp Negati ve negati ve Not Available [facility] ([facility]) [address] [facility], [place], [address], 03/03/2024 10:07:14 02/26/20 24 03/01/2024 IGP, CTNG, RFX APTIM A HPV ASCU gonococcus, nuc. acid amp Negati ve negati ve Not Available [facility] ([facility]) [address] [place], [address], 03/03/2024 10:07:14 02/26/20 24 03/03/2024 IGP, CTNG, RFX APTIM A HPV ASCU diagnosis: Sheela OLMOS DEB FOR INTRA EPITH ELIAL LESIO N OR CINTHYA NESS . THIS SPECI MEN WAS RESCR EENED PART OF OUR QUALI TY CONTR OL PROGR AM. Not Available [facility] ([facility]) [address] [place], [address], 03/03/2024 10:07:14 02/26/20 24 03/03/2024 IGP, CTNG, RFX APTIM A HPV ASCU specimen adequacy: Sheela valle Satis roque duomnt for evalu ation . Endoc ervic al and/o r squam ous metap lasti c cells (endo cervi owen compo nent) are prese nt. Not Available [facility] ([facility]) [address] [place], [address], 03/03/2024 10:07:14 02/26/20 24 03/03/2024 IGP, CTNG, RFX APTIM A HPV ASCU clinician provided ICD10: Sheela valle Z01.4 19 Not Available [facility] ([facility]) [address] [place], [address], 03/03/2024 10:07:14 02/26/20 24 03/03/2024 IGP, CTNG, RFX APTIM A HPV ASCU performed by: Sheela Gutierrez , Cytot lilibeth valle (ASCP ) Not Available [facility] ([facility]) [address] [place], [address], 03/03/2024 10:07:14 02/26/20 24 03/03/2024 IGP, CTNG, RFX APTIM A HPV ASCU QC reviewed by: Sheela Grijalva sa J Byeradelina y, Cytot lilibeth hill t (ASCP ) Not Available [facility] ([facility]) [address] [place], [address], 03/03/2024 10:07:14 02/26/20 24 03/03/2024 IGP, CTNG, RFX APTIM A HPV ASCU . . Not Available [facility] ([facility]) [address] [place], [address], 03/03/2024 10:07:14 02/26/20 24 03/03/2024 IGP, CTNG, [...] ts do occur . Not Available [facility] ([facility]) [address] [place], [address], 03/03/2024 10:07:14 02/26/20 24 03/03/2024 IGP, CTNG, RFX APTIM A HPV ASCU test methodology: Sheela valle This liqui d based ThinP rep(R ) pap test was scree rowena with the use of an image guide d systleatha m. Not Available [facility] ([facility]) [address] [place], [address], 03/03/2024 10:07:14 02/26/20 24 03/03/2024 IGP, CTNG, RFX APTIM A HPV ASCU . Sheela t The HPV DNA refle x crite paul were not met with this speci men resul t there fore, no HPV testi ng was perfo rmed. Not Available [facility] ([facility]) [address] [facility], [place], [address], 03/03/2024 10:07:14 06/29/2006/30/2025 IGP, CTNG, RFX APTIM A HPV ASCU chlamydia, nuc. acid amp Negati ve negati ve Not Available [facility] ([facility]) [address] [facility], [place], [address], 07/03/2025 14:16:02 06/29/2006/30/2025 IGP, CTNG, RFX APTIM A HPV ASCU gonococcus, nuc. acid amp Negati ve negati ve Not Available [facility] ([facility]) [address] [facility], [place], [address], 07/03/2025 14:16:02 06/29/2007/03/2025 IGP, CTNG, RFX APTIM A HPV ASCU diagnosis: Commen t NEGAT DEB FOR INTRA EPITH ELIAL LESIO N OR CINTHYA NESS . Not Available [facility] ([facility]) [address] [facility], [place], [address], 07/03/2025 14:16:02 06/29/2007/03/2025 IGP, CTNG, RFX APTIM A HPV ASCU specimen adequacy: Commen t Satis facto ry for evalu ation . No endoc ervic al compo nent is ident ified . Not Available [facility] ([facility]) [address] [facility], [place], [address], 07/03/2025 14:16:02 06/29/2007/03/2025 IGP, CTNG, RFX APTIM A HPV ASCU clinician provided ICD10: Commen t Z01.4 19 Not Available [facility] ([facility]) [address] [facility], [place], [address], 07/03/2025 14:16:02 06/29/20 25 07/03/2025 IGP, CTNG, RFX APTIM A HPV ASCU performed by: Sheela abad, Cytol ogist (ASCP ) Not Available [facility] ([facility]) [address] [place], [address], 07/03/2025 14:16:02 06/29/20 25 07/03/2025 IGP, CTNG, RFX APTIM A HPV ASCU . . Not Available [facility] ([facility]) [address] [place], [address], 07/03/2025 14:16:02 06/29/2007/03/2025 IGP, CTNG, RFX APTIM [...] ts do occur . Not Available [facility] ([facility]) [address] [place], [address], 07/03/2025 14:16:02 06/29/20 25 07/03/2025 IGP, CTNG, RFX APTIM A HPV ASCU test methodology: Sheela valle This liqui d based ThinP rep(R ) pap test was scree rowena with the use of an image guide d syste m. Not Available [facility] ([facility]) [address] [place], [address], 07/03/2025 14:16:02 06/29/2007/03/2025 IGP, CTNG, RFX APTIM A HPV ASCU . Sheela t The HPV DNA refle x crite paul were not met with this speci men resul t there fore, no HPV testi ng was perfo rmed. Not Available [facility] ([facility]) [address] [facility], [place], [address], 07/03/2025 14:16:02 Result Notes None recorded. Problems Name Problem SNOMED Code Status Onset Date Resolution Date Notes Provider Name and Address Organization Details Recorded Time Eczema 99038919 Active 01/14/20 Renee blanco [place] - [facility] [...] Available Not Available No t Available Alyacen 135 (28) 1 mg-35 mcg tablet Take 1 tablet every day by oral route. 2024 active Not Available Not Available Not Avai lable guaifenesin ER 600 mg tablet, extended release 12 hr TAKE 1 TABLET BY MOUTH 2 TIMES A DAY FOR 5 DAYS 06/29 completed Not Available Not Available Not Available Rinvoq 15 mg tablet,exte nded release 02/25 completed Not Available Not Available Not Available Vitals Date Recorded Body weight Body mass index (BMI) Body height Body temperature Heart rate Systolic And Diastolic Provider Name and Address Organization Details Last Updated DateTime 2 95409.1 5 g 32 kg/m2 152.4 cm 97.21 [degF] 82 /min 119/62 mm[Hg] Renee Fitzpatrick [place] - [facility], 2 15:00:47 Date Recorded Body weight Body mass index (BMI) Body height Heart rate Systolic And Diastolic Provider Name and Address Organization Details Last Updated DateTime 01/27/2023 72759.26 g 34.4 kg/m2 152.4 cm 64 /min 115/50 mm[Hg] Renee Fitzpatrick [place] - [facility], 01/27/2023 14:02:13 Date Recorded Body weight Body mass index (BMI) Body height Body temperature Heart rate Systolic And Diastolic Provider Name and Address Organization Details Last Updated DateTime 4 92374.5 9 g 35.5 kg/m2 153.67 cm 98.6 [degF] 82 /min 108/56 mm[Hg] Nicki Weston [place] - [facility], 4 15:23:55 Date Recorded Body weight Body mass index (BMI) Body height Heart rate Systolic And Diastolic Provider Name and Address Organization Details Last Updated DateTime 06/29/2025 65616.37 g 35.5 kg/m2 154.94 cm 81 /min 116/59 mm[Hg] Nicki Weston [place] - [facility], 06/29/2025 15:41:26 Social History Question Answer Notes LastModified by Organizat ion Details LastModified Time Tobacco Smoking Status Never Smoker Renee blanco [place] - [facility], 01/13/2022 15:04:51 What Is Your Level [...] Or The Highest Degree You Have Received? 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 Occasional Information not available 01/13/2022 Mental Status Question Answer Note LastModified by Organizat ion Details LastModified Time Do you feel stressed (tense, restless, nervous, or anxious, or unable to sleep at night)? [id number] Depends on whats going on at work [...] Depression N Defects or Inherited Disease N History of Ovarian Cancer N Anemia N History of Breast Cancer [...] Immunizations Vaccine Type Date Status Note Provider Rudy zhang and Address Organization Details Recorded Time meningococcal B, recombinant 0 completed Nicki blanco [place] - [facility], 02/26/2024 15:23:06 meningococcal B, recombinant 9 completed Nicki Meczywor null, [place] - [facility], 02/26/2024 15:23:06 Hep B, adolescent or pediatric 0 completed Nicki Meczywor null, [place] - [facility], 02/26/2024 15:23:06 Hep B, adolescent or pediatric 9 completed Nicki Meczywor null, [place] - [facility], 02/26/2024 15:23:06 Hep B, adolescent or pediatric 9 completed Nicki Meczywor null, [place] - [facility], 02/26/2024 15:23:06 Hep A, ped/adol, 2 dose 5 completed Nicki Meczywor null, [place] - [facility], 02/26/2024 15:23:06 meningococcal MCV4P 8 completed Nicki Meczywor null, [place] - [facility], 02/26/2024 15:23:06 Past Encounters Encounter ID Performer Location Encounter Start Date Encounter Closed Date Diagnosis/Indication Diagnosis SNOMED-CT Code Diagnosis ICD10 Code Diagnosis IMO Codes Diagnosis Note [id number] MD LORI Doherty MD [address] [place] [address], [address] [place] [address] 01/13/2022 14:53:27 01/13/2022 15:56:44 Specialized medical examination 37705499 Z01.419 Venereal d isease screening 813009871 Z11.3 [id number] MD LORI Doherty MD [address] [place] [address],[address] [place] [address] 01/27/2023 13:57:25 01/27/2023 14:20:40 Specialized medical examination 97166836 Z01.419 Venereal d isease screening 096598773 Z11.3 [id number] MD LORI Doherty MD [address] [facility],[address] [place] [address] 02/26/2024 15:19:01 02/26/2024 16:01:03 Specialized medical examination 83004248 Z01.419 Venereal d isease screening 386442841 Z11.3 [id number] MD LORI Doherty MD [address] [facility] [place] [address] 06/29/2025 15:18:48 06/30/2025 09:46:18 Specialized medical examination 85992347 Z01.419 Venereal d isease screening 508335196 Z11.3 Health Concerns Section Related Observation LastModified by Organization Detai ls LastModified Time None Recorded Concern Status LastModified by Organization Details LastModified Time None Recorded Advance Directives Directive None Recorded Payers Insurance Date Sequence Insurance Name Policy Number Policy Davis Covered Member ID Davis Member ID Guarantor Name 06/26/2025 1 PAOLO (PPO) [id number] Rony Levi [id number] Enrico Levi Notes Date Note Type Note Provider Name and Address Organization Details Recorded Time 01/13/2022 text/html She is here as a new patient for annual exam, it is her first pap. She takes the OCP with good results, remembers daily, and elects to continue. Same partner for 3 years. She works at [employer] in [place]. Lori Tomlinson MD [address] [facility],[address], [place], [address], [facility], 01/13/2022 15:44:57 01/27/2023 text/html She is here for annual exam, doing well on ning OCP. She and her boyfriend just returned from vacation in [place]. Note from 2021: She is here as a new patient for annual exam, it is her first pap. She takes the OCP with good results, remembers daily, and elects to continue. Same partner for 3 years.She works at [employer] in [place]. Lori Tomlinson MD [address], [place], [address], [facility], 01/27/2023 14:16:11 02/26/2024 text/html She is here for annual, has noted worsening dysmenorrhea with cramping wiht ht elast several menses getting worse on her OCP. 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 Note from 2022: She is here for annual exam, doing well on ning OCP. She and her boyfriend just returned from vacation in [place]. Lori Tomlinson MD [address] [facility],[address], [place], [address], [place] [facility], 02/26/2024 15:47:14 06/29/2025 text/html She is here for annual, doing well on her 35 mcg OCP. We had gone up from 30 to 35 mcg and this did solve the dysmenorrhea issues. 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 Lori Tomlinson MD [address] [facility],[address], [place], [address], [place] - [facility], 06/29/2025 15:55:38 OBGyn Episode No OBEpisode recorded.
== END 2025-09-28 07:48 | disposition home or self-care (01) ==
LOC: HO.XRAY 07:47
PROVIDERS: PCP Internal Medicine; Visit Provider Internal Medicine
DX: K21.9 Gastro-esophageal reflux disease without esophagitis (principal)
CPT/HCPCS: 74240

== ENCOUNTER → 2025-09-28 07:48 | Outpatient (BNV) | payer BC, SELFPAY | PROVIDERS: PCP Internal Medicine; Visit Provider Radiology Diagnostic Radiology | DX: K21.9 Gastro-esophageal reflux disease without esophagitis (principal) | CPT/HCPCS: 74246 ==